=== PATIENT | male | born 1935 | race Caucasian/White ===

== ENCOUNTER → 2018-07-29 12:54 | Outpatient (CLI) | payer MEDICARE, BC, SELFPAY ==
--- NOTE | 2018-07-29 12:59 | US_ITS ---
US kidney retroperitoneal comp HISTORY: ITS.REASON: CKD III ORDERING PHYSICIAN: Jerald Faye PATIENT AGE: 82 years Comparison: None FINDINGS: The right kidney measures 8.9 x 3.9 x 5.6 cm. There is mild renal cortical thinning. No hydronephrosis. No renal mass or perinephric fluid. Left kidney measures 8.8 x 5.3 x 3.9 cm with some mild cortical thinning inferiorly. No hydronephrosis or perinephric fluid collection or renal mass. Unremarkable echogenicity of the kidneys Incidental note made of gallstones. IMPRESSION: 1. No hydronephrosis. 2. Mild cortical thinning. 3. Cholelithiasis
== END ==
PROVIDERS: PCP Family Medicine; Visit Provider Internal Medicine Nephrology
DX: N18.3 Chronic kidney disease, stage 3 (moderate) (principal)
CPT/HCPCS: 76770

== ENCOUNTER → 2019-06-23 15:31 | Outpatient (CLI) | payer MEDICARE, BC, SELFPAY ==
--- NOTE | 2019-06-23 15:39 | XR_ITS ---
PROCEDURE: XR CHEST 2V CLINICAL HISTORY: COUGH Cough COMPARISON: No exams were available for comparison FINDINGS: Prior CABG with clipping of left atrial appendage. Prior aortic valve replacement. There is elevated left hemidiaphragm with atelectatic change in the left lung base and minimal blunting of the left CP angle. Right lung is clear There are degenerative changes of the thoracic spine IMPRESSION: Postsurgical changes with elevated left hemidiaphragm with left basilar atelectasis and trace left effusion Dictated by: Francisco Jaramillo MD 06/23/2019 16:00 Electronically signed by Francisco Jaramillo MD in [place] 06/23/2019 16:00
== END ==
PROVIDERS: PCP Family Medicine; Visit Provider Family Medicine
DX: R05 Cough (principal)
CPT/HCPCS: 71046

== ENCOUNTER → 2020-01-21 07:43 | Outpatient (CLI) | payer MEDICARE, BC, SELFPAY ==
--- NOTE | 2020-01-21 | CA_ITS ---
APPROVED REPORT Civil Engineering Drafter: Cathy Painting RVT Study Quality: Good Indications: CKD,PRIOR HX HTN,HX KIDNEY STONES Risk Factors Hypertension Diabetes Renal Artery Doppler Origin (R) 59.8/ cm/sec Proximal (R) 62.3/ cm/sec Mid (R) 113.1/ cm/sec Distal (R) 59.3/ cm/sec Renal Aorta Ratio (R) 1.00 Segmental A. (R) 44.8/6.7 cm/sec RI: 0.85 Segmental A. Sup (R) 28.0/7.8 cm/sec Segmental A. Mid (R) 44.8/6.7 cm/sec Segmental A. Inf (R) 24.6/7.8 cm/sec Origin (L) 133.4/ cm/sec Proximal (L) 99.7/ cm/sec Mid (L) 113.4/ cm/sec Distal (L) 48.9/ cm/sec Renal Aorta Ratio (L) 1.18 Segmental A. (L) 37.2/9.8 cm/sec RI: 0.73 Segmental A. Sup (L) 27.4/7.8 cm/sec Segmental A. Mid (L) 32.3/12.7 cm/sec Segmental A. Inf (L) 37.2/9.8 cm/sec Renal Measurements Kidney Size (R) 8.2x4.9 cm Cortical Thickness (R) 0.9 cm Kidney Size (L) 10.0x5.6 cm Cortical Thickness (L) 1.2 cm Conclusion Study suggests no evidence of renal artery stenosis in the bilateral renal arteries. 1.2 cm cyst mid pole left kidney. Electronically signed by : Francisco Jaramillo MD 01/21/2020 17:46:56
--- NOTE | 2020-01-21 08:43 | US_ITS ---
PROCEDURE: US KIDNEY CLINICAL INDICATION: CHRONIC KIDNEY DISEASE COMPARISON: RETROPCM US kidney retroperitoneal comp from 07/29/2018 [place] RENAL ARTERY DUPLEX from 01/21/2020 FINDINGS: The right kidney is [id number]. No hydronephrosis, cortical thinning, or renal mass or perinephric fluid collection is evident. There is cortical thinning of the right kidney The left kidney is [id number]. No hydronephrosis, cortical thinning, or renal mass or perinephric fluid collection is evident. There is a small left renal cyst along the lower pole measuring 7 mm. Incidental note made cholelithiasis IMPRESSION: 1. No hydronephrosis. 2. Right renal cortical thinning. 3. Cholelithiasis Dictated by: Francisco Jaramillo MD 01/21/2020 11:26 Electronically signed by Francisco Jaramillo MD in [place] 01/21/2020 11:26
== END ==
PROVIDERS: PCP Family Medicine; Visit Provider Family Medicine
DX: N18.9 Chronic kidney disease, unspecified (principal)
CPT/HCPCS: 76770; 93976

== ENCOUNTER 2020-11-06 15:33 | Observation (INO) | payer MEDICARE, BC, SELFPAY ==
[2020-11-06] VITALS (10 sets, daily range): BP systolic 131–159; BP diastolic 56–96; PULSE 64–90; RESP 16–26; TEMP 36.7–36.9; O2SAT 93–97; BMI 24.3; BMI 26.3
--- NOTE | 2020-11-06 15:36 | ECG_ITS ---
APPROVED REPORT Exam: Resting ECG HR:78 bpm ECG Measurements Heart Rate 78 AXES WA 190 P 65 QRSd 88 QRS -12 QT 378 T 35 QTc 430 Conclusion Sinus rhythm with marked sinus arrhythmia Otherwise normal ECG Electronically signed by : Akash Payne, 11/07/2020 07:10:39
--- NOTE | 2020-11-06 15:39 | HMH.EDGENADL ---
ED Disposition Clinical Impression: Generalized weakness, SIRS (systemic inflammatory response syndrome) Disposition: Admitted as Observation Condition on Discharge: Fair Referrals: PCP,No [Non-Staff] - - Critical Care Critical Care Time: No Attestation: On 11/06/20, the high probability of a clinically significant, sudden or life threatening deterioration of the following system(s) required my full and direct attention, intervention and personal management. The time I documented below is in addition to time spent performing reported procedures but includes the following listed in this critical care notation. Medical Decision Making - Skyler Inquiry Pt receiving controlled substance: No Vital Signs: 11/06/20 15:33 11/06/20 16:19 11/06/20 16:30 Temperature 98.4 F Temperature Source Oral Pulse Rate [Left Radial] 64 74 81 Respiratory Rate 20 18 Blood Pressure [Right Arm] 147/96 H 159/80 H 140/68 Blood Pressure Mean [Right Arm] 113 106 92 Blood Pressure Source [Right Arm] Automatic Cuff Automatic Cuff Blood Pressure Position [Right Arm] Sitting Sitting 02 Sat by Pulse Oximetry 96 94 L 95 Oxygen Delivery Method Room Air Room Air Room Air 11/06/20 17:00 Temperature Temperature Source Pulse Rate [Left Radial] 82 Respiratory Rate Blood Pressure [Right Arm] 141/82 H Blood Pressure Mean [Right Arm] 101 Blood Pressure Source [Right Arm] Automatic Cuff Blood Pressure Position [Right Arm] Sitting 02 Sat by Pulse Oximetry 96 Oxygen Delivery Method Room Air - Lab Data Lab Results 11/06/20 15:38: Lactate 1.5 11/06/20 15:38: WBC 12.2 H, RBC 4.52 L, Hgb 13.2 L, Hct 40.7 L, MCV 90.0, MCH 29.1, MCHC 32.4, RDW 13.5, Plt Count 209, MPV 8.1, Neut % (Auto) 84.3 H, Lymph % (Auto) 10.5, [place] % (Auto) 3.9, Eos % (Auto) 0.8, Baso % (Auto) 0.5, Neut # (Auto) 10.3 H, Lymph # (Auto) 1.3, [place] # (Auto) 0.5, Eos # (Auto) 0.1, Baso # (Auto) 0.1 11/06/20 15:38: Sodium 138, Potassium 4.5, Chloride 103, Carbon Dioxide 31 H, Anion Gap 8.5, BUN 32 H, Creatinine 1.80 H, Estimated Creat Clear 33, Estimated GFR 36 L, Est GFR ( Amer) 44 L, Glucose 260 H, Calcium 9.5 11/06/20 15:38: Total Bilirubin 1.4 H, Direct Bilirubin 0.0, Conjugated Bilirubin 0.0, Indirect Bilirubin 1.4 H, Unconjugated Bilirubin 1.4 H, AST 32, ALT 17, Alkaline Phosphatase 101, Troponin I 0.01, NT-Pro-B Natriuret Pep 1510 H, Total Protein 6.9, Albumin 4.0 11/06/20 16:11: Urine Color Yellow, Urine Appearance Clear, Urine pH 5.5, Ur Specific [place] 1.025, Urine Protein Negative, Urine Glucose (UA) 2+, Urine Ketones Negative, Urine Blood 3+, Urine Nitrate Negative, Urine Bilirubin Negative, Urine Urobilinogen 0.2, Ur Leukocyte Esterase Negative, Urine RBC 20-50, Urine WBC None, Ur Squamous Epith Cells Occasional, Amorphous Sediment Trace, Urine Bacteria None Result diagrams: 11/06/20 15:38 11/06/20 15:38 Orders (Tests/Meds): ORDERS Category Date Time Status CT head/brain wo con Stat Cat Scan 11/06/20 15:59 Taken XR chest portable Stat Exams 11/06/20 15:57 Taken Covid-19 Nasal PCR ([facility]) Routine Lab 11/06/20 16:11 Received Procalcitonin Stat Lab 11/06/20 17:14 Ordered Troponin I Q3H Lab 11/06/20 19:00 Ordered Troponin I Q3H Lab 11/06/20 22:00 Ordered Blood Culture Stat Micro 11/06/20 15:43 Received - Radiology Data #1 Image(s): Chest Image Reviewed: Yes I reviewed the patient's radiology image Elevated left hemidiaphragm, chronic. Left basilar atelectasis. Chronic blunting left costophrenic angle. Prior surgical changes. No acute process. - CT Data CT Scan: Head Time Received: 16:47 ([facility] fax) ED CT Reviewed: Yes: I have viewed the radiologist's interpretation Findings Narrative: No acute intracranial hemorrhage. multiple small hypodensities in the basal ganglia consistent with remote lacunar infarctions. Moderate cerebral atrophy. Chronic white matter ischemic changes. - ECG Data Tracing #1 EKG interpreted
[2020-11-06 15:52] LABS: Basophils # 0.1 K/mm3 (0-0.2); Basophils % 0.5 % (0.1-2.0); Eosinophils # 0.1 K/mm3 (0.0-0.4); Eosinophils % 0.8 % (0.1-12.0); Hematocrit 40.7 % (42.0-52.0); Hemoglobin 13.2 g/dL (14.1-18.0); Lymphocytes # 1.3 K/mm3 (0.7-4.5); Lymphocytes % 10.5 % (10-50); Mean Corpuscular HGB Conc 32.4 g/dL (31.8-35.4); Mean Corpuscular Hemoglobin 29.1 pg (27.0-31.2); Mean Platelet Volume 8.1 fl (7.4-10.4); Monocytes # 0.5 K/mm3 (0.1-1.0); Monocytes % 3.9 % (1.7-9.3); Neutrophils # 10.3 K/mm3 (1.8-7.8); Neutrophils % 84.3 % (37.0-80.0); Platelet Count 209 K/mm3 (142-424); Red Blood Count 4.52 M/mm3 (4.60-6.20); Red Cell Distribution Width 13.5 % (11.5-17.5); White Blood Count 12.2 K/mm3 (4.8-10.8)
[2020-11-06 15:53] LABS: Chloride 103 mmol/L (98-107)
[2020-11-06 15:54] LABS: Potassium 4.5 mmoL/L (3.5-5.1); Sodium 138 mmol/L (136-145)
[2020-11-06 15:56] LABS: Blood Urea Nitrogen 32 mg/dl (9-20); Creatinine Clearance Estimated 33 mL/min (50-200); Estimated Glomerular Filt Rate 36 ml/min (>60); GFR (African American) 44 ML/MIN (>60)
[2020-11-06 15:57] LABS: Anion Gap 8.5 mEq/L (5-15); Calcium 9.5 mg/dl (8.4-10.2); Carbon Dioxide 31 mmol/L (22.0-30.0); Glucose 260 mg/dl (74-100)
--- NOTE | 2020-11-06 15:57 | XR_ITS ---
PROCEDURE: XR CHEST PORTABLE CLINICAL HISTORY: soa COMPARISON: DX XR CHEST 2V from 06/23/2019 FINDINGS: Prior median sternotomy with left atrial appendage clipping. Elevated left hemidiaphragm similar to the previous exam with low lung volumes. Minimal left basilar atelectasis. Right lung is clear. Degenerative change right shoulder. IMPRESSION: As above,. No change with no acute finding Dictated by: Francisco Jaramillo MD 11/07/2020 07:32 Francisco Jaramillo MD in [place] 11/07/2020 07:32
--- NOTE | 2020-11-06 15:59 | CT_ITS ---
PROCEDURE: CT HEAD/BRAIN WO CON CLINICAL INDICATION: difficulty ambulating Altered mental status, altered level of consciousness, confusion, disorientation difficulty walking COMPARISON: No exams were available for comparison TECHNIQUE: Axial images obtained. All CT scans at the facility use one or more dose reduction, viz: automated exposure control, ma/kV adjustment per patient size (including targeted exams where dose is matched to indication, i.e. head), or iterative reconstruction technique. FINDINGS: No midline shift, mass effect, intracranial hemorrhage, hydrocephalus, or extra-axial fluid collection is evident. There are encephalomalacia changes in the cerebellar hemisphere inferiorly. There is generalized atrophy with periventricular hypodensity consistent with ischemic gliotic change from microvascular disease. There are old bilateral lacunar infarctions. The lateral ventricles are prominent and may be due to ex vacuo dilatation from volume loss. The calvarium has an unremarkable appearance. No mastoid effusion. No sinus air-fluid level. IMPRESSION: No acute intracranial finding Chronic ischemic changes with atrophy Dictated by: Francisco Jaramillo MD 11/07/2020 08:30 Francisco Jaramillo MD in [place] 11/07/2020 08:30
[2020-11-06 16:02] LABS: Lactic Acid 1.5 mmol/L (0.7-2.1)
[2020-11-06 16:10] LABS: Alanine Aminotransferase 17 U/L (12-78); Alkaline Phosphatase 101 U/L (38-126); Aspartate Amino Transferase 32 U/L (17-59); Bilirubin,Indirect 1.4 mg/dL (0.0-0.9); Bilirubin,Total 1.4 mg/dl (0.2-1.3); Bilirubin,Unconjugated 1.4 mg/dL (0.0-1.1); Total Protein,Serum 6.9 g/dl (6.3-8.2)
[2020-11-06 16:19] LABS: Microscopic, Urine URINE MICROSCOPIC (MICROSCOPIC)
[2020-11-06 16:21] LABS: NT Pro Brain Natriuretic Pep. 1510 pg/mL (0-450)
[2020-11-06 16:25] LABS: Appearance,Urine CLEAR (Clear); Bilirubin,Urine Negative (Negative); Blood, Urine 3+ (Negative); Color,Urine YELLOW (Yellow); Glucose,Urine (UA) 2+ (Negative); Ketones,Urine Negative (Negative); Leukocyte Esterase,Urine Negative (Negative); Nitrate,Urine Negative (Negative); PH,Urine 5.5 (5.0-8.5); Protein,Urine Negative (Negative); Specific Gravity, Urine 1.025 (1.005-1.030); Urobilinogen,Urine 0.2 EU/dl (0.2)
--- NOTE | 2020-11-06 16:25 | PC.NURSE ---
Pt to rad.
[2020-11-06 16:26] LABS: Troponin I 0.01 ng/ml (0.00-0.034)
[2020-11-06 16:30] LABS: Amorphous Sediment,Urine Trace /lpf; RBC,Urine 20-50 #/hpf (0-3); Squamous Epithelial Cell,Urine Occasional #/hpf (0-5)
--- NOTE | 2020-11-06 16:36 | PC.NURSE ---
pt returning from rad.
--- NOTE | 2020-11-06 17:03 | PC.NURSE ---
MD Clemente at bedside discussing care.
--- NOTE | 2020-11-06 17:20 | PC.NURSE ---
MAHSA GRADES 9 THROUGH 12 TEACHER HERNANDEZ CATHETER. IT WAS DETERMINED THERE WAS NO MEDICAL REASON TO HAVE HERNANDEZ IN PLACE.
--- NOTE | 2020-11-06 17:23 | PC.NURSE ---
Patient attempting to get out of bed, patient repositioned for comfort, significant other at bedside. Bed rails up x 2, call light within reach.
[2020-11-06 18:04] LABS: Procalcitonin 0.071 ng/mL (0.0-2.0)
--- NOTE | 2020-11-06 18:10 | PC.NURSE ---
This RN talked to lab at this time, they report covid swab will be 75 more minutes. Patient holding in ED until covid swab resulted.
[2020-11-06 19:04] LABS: Troponin I 0.02 ng/ml (0.00-0.034)
[2020-11-06 19:43] LABS: POC Glucose,Bedside 255 (70-110)
--- NOTE | 2020-11-06 20:10 | PC.NURSE ---
patient up to floor via stretcher.
[2020-11-06 20:47] LABS: POC Glucose,Bedside 166 (70-110)
[2020-11-06 22:27] LABS: Troponin I 0.02 ng/ml (0.00-0.034)
[2020-11-07] VITALS (7 sets, daily range): BP systolic 122–170; BP diastolic 46–75; PULSE 54–75; RESP 15–19; TEMP 36.4–36.9; O2SAT 95–97; BMI 26.2
--- NOTE | 2020-11-07 03:57 | PC.NURSE ---
Pt oriented to self and birthday and has slept well through the night. pt c/o pain in legs, tylenol administered per mar with desired effects. Lungs are CTA, on room air, sats in mid 90s. IV patent, NS @ 75. Pt has +1 pitting edema in ankles. TEDS on. Pt has not has any UOP through the night. Bowel sounds x4, abd soft and nontender. VSS, call light in reach, no concerns at this time.
[2020-11-07 06:01] LABS: POC Glucose,Bedside 140 (70-110)
[2020-11-07 06:41] LABS: Basophils # 0.1 K/mm3 (0-0.2); Basophils % 0.7 % (0.1-2.0); Eosinophils # 0.3 K/mm3 (0.0-0.4); Eosinophils % 3.7 % (0.1-12.0); Hematocrit 38.3 % (42.0-52.0); Hemoglobin 12.3 g/dL (14.1-18.0); Lymphocytes # 1.8 K/mm3 (0.7-4.5); Lymphocytes % 25.1 % (10-50); Mean Corpuscular Hemoglobin 29.7 pg (27.0-31.2); Mean Corpuscular Volume 92.8 fl (80-94); Mean Platelet Volume 8.5 fl (7.4-10.4); Monocytes # 0.4 K/mm3 (0.1-1.0); Monocytes % 4.9 % (1.7-9.3); Neutrophils # 4.6 K/mm3 (1.8-7.8); Neutrophils % 65.5 % (37.0-80.0); Platelet Count 158 K/mm3 (142-424); Red Blood Count 4.13 M/mm3 (4.60-6.20); Red Cell Distribution Width 13.6 % (11.5-17.5); White Blood Count 7.1 K/mm3 (4.8-10.8)
[2020-11-07 06:45] LABS: Chloride 106 mmol/L (98-107); Sodium 140 mmol/L (136-145)
[2020-11-07 06:46] LABS: Potassium 4.3 mmoL/L (3.5-5.1)
[2020-11-07 06:48] LABS: Blood Urea Nitrogen 29 mg/dl (9-20); Creatinine Clearance Estimated 31 mL/min (50-200); Estimated Glomerular Filt Rate 36 ml/min (>60); GFR (African American) 44 ML/MIN (>60)
[2020-11-07 06:49] LABS: Anion Gap 7.3 mEq/L (5-15); Calcium 8.9 mg/dl (8.4-10.2); Carbon Dioxide 31 mmol/L (22.0-30.0)
[2020-11-07 06:59] LABS: Glucose 122 mg/dl (74-100); Hemoglobin A1C 8.8 % (4.0-6.0)
--- NOTE | 2020-11-07 07:55 | HMH.HP ---
*Admission Date: 11/06/20 *Chief complaint: Weakness *History of present illness: 84-year-old male brought to the ER by family yesterday due to rapidly increasing weakness over the preceding 48 hours. Patient had received his second Covid vaccine the day prior to presentation. Patient did not have any symptoms of illness other than weakness. Patient had apparently become so weak he was unable to ambulate on his own. Patient has underlying dementia as well as chronic kidney disease. After an evaluation in the emergency department which discovered an elevated white blood cell count patient was admitted for further observation. He is remained fever free. This morning patient's dementia prevents discovering any significant information. Patient is oriented to self. He does not realize he is in the hospital. Patient denies any symptoms of disease. [facility] History I have reviewed the patient's past medical history: Yes Medical History: Reports:: Diabetes Mellitus Type 1, Hyperlipidemia, Hypertension, Myocardial Infarction, Valvular Heart Disease *Have you ever received a pneumonia vaccine?: No *Have you received a flu vaccine this season?: No Other Surgeries: Yes: CABG, Cardiac Catheterization, Open Heart Surgery, Skin Cancer Excision, Other Valve Replacement (aortic) - *Social History Smoking Status: Unknown if ever smoked Alcohol Intake: never *Occupational Status:: retired Household Members: significant other *Travel in the last 8 weeks: None Family Hx:: Unable to obtain Review of Systems - Review of Systems Review of systems:: unable to obtain - *Neurologic Reports weakness Meds Home Medications Medication Instructions Recorded Confirmed Type Aspirin 81 mg PO DAILY 11/06/20 11/06/20 History Atorvastatin Calcium [Lipitor 20mg 20 mg PO HS 11/06/20 11/06/20 History Tab] Insulin Aspart [Novolog] 7 units SQ DAILY 11/06/20 11/06/20 History carvediloL [Carvedilol 6.25mg Tab] 6.25 mg PO BID 11/06/20 11/06/20 History Allergies Allergy/AdvReac Type Severity Reaction Status Date / Time NO KNOWN ALLERGIES - NKA Allergy Unknown Uncoded 08/21/17 15:04 Exam Vital signs and Labs for Last 24 Hours: Temp Pulse Resp BP Pulse Ox 97.9 F 54 L 15 122/55 L 96 11/07/20 07:29 11/07/20 07:29 11/07/20 07:29 11/07/20 07:29 11/07/20 07:29 Laboratory Results - last 24 hr 11/06/20 15:38: Lactate 1.5 11/06/20 15:38: WBC 12.2 H, RBC 4.52 L, Hgb 13.2 L, Hct 40.7 L, MCV 90.0, MCH 29.1, MCHC 32.4, RDW 13.5, Plt Count 209, MPV 8.1, Neut % (Auto) 84.3 H, Lymph % (Auto) 10.5, [place] % (Auto) 3.9, Eos % (Auto) 0.8, Baso % (Auto) 0.5, Neut # (Auto) 10.3 H, Lymph # (Auto) 1.3, [place] # (Auto) 0.5, Eos # (Auto) 0.1, Baso # (Auto) 0.1 11/06/20 15:38: Sodium 138, Potassium 4.5, Chloride 103, Carbon Dioxide 31 H, Anion Gap 8.5, BUN 32 H, Creatinine 1.80 H, Estimated Creat Clear 33, Estimated GFR 36 L, Est GFR ( Amer) 44 L, Glucose 260 H, Calcium 9.5 11/06/20 15:38: Total Bilirubin 1.4 H, Direct Bilirubin 0.0, Conjugated Bilirubin 0.0, Indirect Bilirubin 1.4 H, Unconjugated Bilirubin 1.4 H, AST 32, ALT 17, Alkaline Phosphatase 101, Troponin I 0.01, NT-Pro-B Natriuret Pep 1510 H, Total Protein 6.9, Albumin 4.0 11/06/20 15:38: Procalcitonin 0.071 11/06/20 15:42: POC Glucose 255 H 11/06/20 16:11: Urine Color Yellow, Urine Appearance Clear, Urine pH 5.5, Ur Specific [place] 1.025, Urine Protein Negative, Urine Glucose (UA) 2+, Urine Ketones Negative, Urine Blood 3+, Urine Nitrate Negative, Urine Bilirubin Negative, Urine Urobilinogen 0.2, Ur Leukocyte Esterase Negative, Urine RBC 20-50, Urine WBC None, Ur Squamous Epith Cells Occasional, Amorphous Sediment Trace, Urine Bacteria None 11/06/20 18:40: Troponin I 0.02 11/06/20 20:27: POC Glucose 166 H 11/06/20 21:43: Troponin I 0.02 11/07/20 05:54: POC Glucose 140 H 11/07/20 06:10: WBC 7.1 D, RBC 4.13 L, Hgb 12.3 L, Hct 38.3 L, MCV 92.8, MCH 29.7, MCHC 32.0, RDW 13.6, Plt Count 158, MPV 8.5, Neut
--- NOTE | 2020-11-07 08:21 | P.CONPHA_ITS ---
[facility] Pharmacy VTE Monitoring - Patient Demographics Admission date: 11/07/19 Report Date: 11/07/20 Time: 08:21 Allergies/Adverse Reactions: Patient Allergies No Known Allergies Allergy (Unverified 11/07/20 08:09) Height: 1.68 m Weight: 73.936 kg Patient Problems: Current Active Problems Generalized weakness (Acute) SIRS (systemic inflammatory response syndrome) (Acute) Chronic kidney disease, stage 3b (Acute) Alzheimer's dementia (Acute) - VTE Risk Labs: VTE Related Lab Results Hgb 12.3 g/dL (14.1-18.0) L 11/07/20 06:10 Hct 38.3 % (42.0-52.0) L 11/07/20 06:10 Plt Count 158 K/mm3 (142-424) 11/07/20 06:10 BUN 29 mg/dl (9-20) H 11/07/20 06:10 Creatinine 1.80 mg/dl (0.66-1.25) H 11/07/20 06:10 Estimated Creat Clear 31 mL/min (50-200) 11/07/20 06:10 VTE Risk Level: Low Risk - Prophylaxis VTE Prophylaxis Ordered?: Yes Types of VTE Prophylaxis: TEDS Knee High Location of Applied Device: Bilateral Lower Extremeties
--- NOTE | 2020-11-07 15:05 | PC.NURSE ---
PT IS SITTING UP IN THE CHAIR WITH IN THE ROOM. PT HAS STOOD AT THE SOB X2 WITH ASSISTANCE TO USE THE URINAL. AT 1200 AFTER PT USED THE URINAL HE STARTED TO HAVE A BOWEL MOVEMENT AT THE SOB. PT WAS A MINIMUM ASSIST X2 TO AMBULATE TO THE BATHROOM. PT WAS VERY CAUTIOUS WHILE AMBULATING. ACCORDING TO PT'S HE USES A ROLLING WALKER AT HOME. STATES PT NEEDS ASSISTANCE WITH ADL'S AT HOME. TOTAL BATH AND LINEN CHANGE THIS SHIFT. PT HAS BEEN ABLE TO FEED HIMSELF THIS SHIFT BUT EVERYTHING HAS TO BE OPEN AND TOTALLY SETUP ON TRAY. EATING AND DRINKING WELL. ALERT TO SELF ONLY. PT IS UNAWARE HE IS IN THE HOSPITAL. NSR ON THE MONITOR. LUNG SOUNDS CLEAR T/O. REDNESS NOTED TO THE BUTTOCKS. 2+ PITTING EDEMA NOTED TO BILATERAL ANKLES. SPEECH IS VERY GARBLED. PT HAD NO ISSUES WITH CHEWING OR SWALLOWING THIS SHIFT. WILL CONTINUE TO MONITOR.
[2020-11-07 21:24] LABS: POC Glucose,Bedside 170 (70-110)
[2020-11-08] VITALS: BP 150/73; PULSE 64; PULSE 80; RESP 18; TEMP 36.4; O2SAT 96
--- NOTE | 2020-11-08 00:18 | PC.NURSE ---
patient has needed frequent redirection and education on getting out of bed without assistance. has set bed alarm off multiple times. anti slip socks in place, call light within reach, bed alarm on and activated. 2 tylenol given for restlessness. patient takes at home before bed.
--- NOTE | 2020-11-08 02:05 | PC.NURSE ---
0130 patient continues to be restless and impulsive attempting to get up out of bed. rn and tech ambulated patient with walker in hallway to attempt to calm patient.
[2020-11-08 04:00] VITALS: BP 136/67; PULSE 59; PULSE 63; RESP 18; TEMP 36.3; O2SAT 95
[2020-11-08 05:00] VITALS: BMI 26.6
[2020-11-08 05:33] LABS: POC Glucose,Bedside 105 (70-110)
--- NOTE | 2020-11-08 05:58 | PC.NURSE ---
shift summary patient has been unable to sleep more than an hour tonight. remains oriented to self only, pleasantly confused, follows commands appropriately. has repeatedly attempted to get up out of bed setting off the bedside alarm. breath sounds remain clear, environmental monitoring specialist shows sr. patient ambulated with walker, slightly unsteady on feet.
--- NOTE | 2020-11-08 06:52 | HMH.ACPN2 ---
Internal Medicine - PN: Subj *Date: 11/08/20 *Time: 06:52 Interval history: No acute events. Patient remains confused. Patient ambulated with staff multiple times throughout the night with either 1 or 2 person standby assist. Patient had no difficulty with diet per nursing staff. Exam Vital signs and Labs for Last 24 Hours: Temp Pulse Resp BP Pulse Ox 97.3 F L 63 18 136/67 95 11/08/20 04:00 11/08/20 04:00 11/08/20 04:00 11/08/20 04:00 11/08/20 04:00 Laboratory Results - last 24 hr 11/07/20 06:10: Sodium 140, Potassium 4.3, Chloride 106, Carbon Dioxide 31 H, Anion Gap 7.3, BUN 29 H, Creatinine 1.80 H, Estimated Creat Clear 31, Estimated GFR 36 L, Est GFR ( Amer) 44 L, Glucose 122 H D, Calcium 8.9 11/07/20 06:10: Hemoglobin A1c 8.8 H 11/07/20 20:43: POC Glucose 170 H 11/08/20 05:26: POC Glucose 105 I & O for Last 24 hours: Intake & Output 11/05/20 11/06/20 11/07/20 11/08/20 11:59 11:59 11:59 11:59 Intake Total 907 / 907 480 / 480 Balance 907 / 907 480 / 480 Weight 163 lb 166 lb 2 oz - Constitutional no acute distress - *Routine Respiratory Exam Present: CTA bilaterally - *Routine Cardiovascular Exam Present: RRR - *Routine Extremities Exam Present: edema (2+ lower extremities). Absent: cyanosis, clubbing Assessment and Plan (1) Generalized weakness Status: Acute Category: Medical Code(s): R53.1 - Weakness (2) Chronic kidney disease, stage 3b Status: Acute Category: Medical Code(s): N18.32 - Chronic kidney disease, stage 3b (3) Alzheimer's dementia Status: Acute Category: Medical Code(s): G30.9 - Alzheimer's disease, unspecified; F02.80 - Dementia in other diseases classified elsewhere without behavioral disturbance (4) CAD (coronary artery disease) Status: Acute Category: Medical Code(s): I25.10 - Atherosclerotic heart disease of [place] coronary artery without angina pectoris (5) Diabetes mellitus type 2, controlled Status: Acute Category: Medical Code(s): E11.9 - Type 2 diabetes mellitus without complications (6) Dysphagia Status: Acute Category: Medical Code(s): R13.10 - Dysphagia, unspecified - Assessment and plan all Dx Assessment and Plan for all problems:: Patient will have formal evaluations with PT and speech therapy today. Patient seems to be returning to baseline. He will likely be discharged home later today
[2020-11-08 08:00] VITALS: BP 142/71; PULSE 71; RESP 16; TEMP 36.8; O2SAT 97
--- NOTE | 2020-11-08 10:12 | HMH.PHAINT ---
clarified home medication list using list fro Dr Durham' office
--- NOTE | 2020-11-08 10:56 | HMH.PTEV ---
Physical Therapy Evaluation Rehab PT IP Evaluation Start: 11/07/20 07:54 Freq: ONCE Status: Active Protocol: Document 11/08/20 10:47 VAUGHN (Rec: 11/08/20 10:56 AVUGHN [id number]) Subjective/History History History This is the initial IP PT evaluation for Cristóbal Roque. Pt is an 84 y/o male admitted to [facility] for progressive weakness over the last weekend . Pt is confused but spouse was in room and able to answer for pt. Pt's reports pt was moderately independent at home w/ use of rollator for ambulation and was generally independent with transfers. Pt's reports over the last few dayss pt was fully dependent to lift and transfer and was unable to ambulate. Pt reports her and her received 2nd COVID vaccine and was curious if this may have affected patient. Subjective Subjective Pt reports no c/o pain although pt states his L knee is bone on bone - pt alert to name, and that he was in the hospital Rehab PT IP Eval Objective Appearance Patient Behavior Cooperative,Confused Patient Orientation Place,Name Difficulty following instructions mild Speech Pattern Garbled Ambulation Patient Able to Ambulate Yes Ambulation Observation IP General Gait Pattern Observation Shuffling Step Ambulation Distance (feet) 35 Ambulation Assistive Device Rolling Walker Ambulation Ability Supervision/Stand by,Contact Guard/Hand Hold Balance Ability to Arise Able, uses arms to help Sitting Balance Steady, safe Standing Balance Unsteady Dynamic Sitting Balance Ability Fair Dynamic Standing Balance Ability Fair Transfers Bed Transfer Ability Contact Guard/Hand Hold Chair Transfer Ability Contact Guard/Hand Hold Sit to Stand Bed Transfer Ability Contact Guard/Hand Hold Sit to Stand Chair Transfer Ability Contact Guard/Hand Hold ROM All Extremities PT ROM Status WFL MMT All Extremities PT MMT WFL Rehab PT IP prob,goals,plan Problems Date of Evaluation: 11/08/20
--- NOTE | 2020-11-08 11:11 | HMH.SLDYSPHA ---
Speech & Language Evaluation Speech/Language Dysphagia Evaluation Start: 11/08/20 11:06 Freq: ONCE Status: Active Protocol: Document 11/08/20 11:06 [place] (Rec: 11/08/20 11:11 [place] [id number]) Dysphagia Assess/Goals/Plan Assessment Date of Evaluation: 11/08/20 Evaluation Type Initial Certification Assessment/Problems Dysphagia Does Patient Qualify for Service No Qualify/Failure Comment Patient showed no overt s/s of dysphagia. Diet modifications made Recommendations PHYSICIAN CERTIFICATION: The specified therapy services are required, authorized, and reviewed every 30 days. Diet Recommendations Mechanical Soft Liquid Type Recommendations Normal/Thin SL Swallow Guidelines Standard Aspiration Prec. Dysphagia Swallow Precautions/Strategies Sitting Upright (90 deg) Plan Pt/Guardian verbally ack understanding Yes: , CM, and RN notified of dx/prognosis/goals G -code Required No General Information General Current Food Consistancy Regular,Thin Liquids Dentition Good Dentition Oxygen Status Room Air Facial Symmetry Symmetrical Patient Orientation Person Dysphagia:Food Presentation Evaluation Food Type Pureed,Mechanical Soft,Regular ,Liquid,Pudding Dysphagia Evaluation Summary Mr. Roque was given the following consistencies: thins via straw and open cup, pudding, pureed, mechanical soft, regular. No overt signs or symptoms of dysphagia noted in the evaluation. At this time, diet modifications made to mechanical soft diet with chopped meats with gravy/sauce and thin liquids to aid in mastication. Speech therapy is not warranted at this time. Should problems continue, a MBSS is needed. Stroke Dysphagia Assessment PHYSICIAN CERTIFICATION: I certify the specified therapy services for Cristóbal Roque are required, authorized, and reviewed every 30 days.
[2020-11-08 11:25] VITALS: BP 154/67; PULSE 80; RESP 16; TEMP 36.8; O2SAT 98
[2020-11-08 11:46] LABS: POC Glucose,Bedside 179 (70-110)
[2020-11-08 11:46] LABS: POC Glucose,Bedside 228 (70-110)
[2020-11-08 11:54] LABS: POC Glucose,Bedside 229 (70-110)
[2020-11-08 13:36] VITALS: BMI 26.5
--- NOTE | 2020-11-08 14:44 | SW/DCPLANNER ---
PATIENT IS DISCHARGING HOME TODAY WITH ...SHE CHOSE TO TAKE PATIENT HOME AND HOME HEALTH WAS SET UP WITH [facility] PER PATIENT CHOICE... I HAVE SENT IT WITH PATIENT INFORMATION FOR SERVICES TO START IN THE AM...
--- NOTE | 2020-11-09 07:08 | HMH.DCSUM ---
General - General Admission date:: 11/06/20 Discharge date: 11/08/20 HPI HPI: 84-year-old male brought to the ER by family yesterday due to rapidly increasing weakness over the preceding 48 hours. Patient had received his second Covid vaccine the day prior to presentation. Patient did not have any symptoms of illness other than weakness. Patient had apparently become so weak he was unable to ambulate on his own. Patient has underlying dementia as well as chronic kidney disease. After an evaluation in the emergency department which discovered an elevated white blood cell count patient was admitted for further observation. He is remained fever free. This morning patient's dementia prevents discovering any significant information. Patient is oriented to self. He does not realize he is in the hospital. Patient denies any symptoms of disease. Hospital Course Hospital Course: Patient was admitted for observation. His appetite was good. Some difficulty speaking were noted. Patient did not have any choking episodes as had been reported by . Patient underwent PT and speech therapy evaluations. Speech therapy found no signs of dysphagia. PT recommended continue physical therapy for strengthening and this can be accomplished through home health. Patient's IV fluids were discontinued on the . Patient ambulated with standby assist. Patient did have some difficulty sleeping during hospitalization. reports this is baseline. We will try some quetiapine at home to see if this improves sleep at night. Patient has follow-up appointment scheduled at the end of the month and will keep this appointment. Patient was discharged home on November 08 Objective Vital signs: Temp Pulse Resp BP Pulse Ox 98.2 F 80 16 154/67 H 98 11/08/20 11:25 11/08/20 11:25 11/08/20 11:25 11/08/20 11:25 11/08/20 11:25 no acute distress - *Routine Respiratory Exam Present: CTA bilaterally - *Routine Cardiovascular Exam Present: RRR - *Routine Abdominal Exam Present: soft, normoactive bowel sounds. Absent: tenderness - *Routine Extremities Exam Present: edema Results Labs on day of discharge: Labs from last 24 hours 11/08/20 11/07/20 11/07/20 11:44 17:09 12:38 POC Glucose 229 H 179 H 228 H Preliminary micro results at discharge 11/06/20 15:43 Blood Culture - Preliminary Blood NO GROWTH AFTER 48 HOURS 11/06/20 15:43 Blood Culture - Preliminary Blood NO GROWTH AFTER 48 HOURS DS: Diagnosis - Discharge Diagnosis (1) Generalized weakness Status: Acute (2) Chronic kidney disease, stage 3b Status: Acute (3) Alzheimer's dementia Status: Acute (4) CAD (coronary artery disease) Status: Acute (5) Diabetes mellitus type 2, controlled Status: Acute (6) Dysphagia Status: Acute Discharge Plan - Patient Discharge Instructions ACTIVITY: Continue current activity DIET: continue same diet Patient Instructions: DI for Muscle Weakness, DI for Altered Mental Status - Follow up Plan Follow up with: Akash Durham MD [Primary Care Provider] - 11/15/20 9:45 am Disposition: Home, Self-[facility] Medications: Home Medications Medication Instructions Recorded Confirmed Type Aspirin 81 mg PO DAILY 11/06/20 11/06/20 History Atorvastatin Calcium [Lipitor 20mg 20 mg PO HS 11/06/20 11/06/20 History Tab] Insulin Aspart [Novolog] 7 units SQ DAILY 11/06/20 11/06/20 History carvediloL [Carvedilol 6.25mg Tab] 6.25 mg PO BID 11/06/20 11/06/20 History Insulin Glargine,Hum.rec.anlog 12 units SQ HS 11/07/20 11/07/20 History [Lantus Insulin 100units/mL 10mL vial] Donepezil HCl [Aricept 10mg 10 mg PO HS 11/08/20 11/08/20 History tablet] Quetiapine Fumarate 25 mg PO HS #30 tab 11/08/20 Rx Prescriptions/Medication Reconciliation: New Quetiapine Fumarate 25 mg PO HS #30 tab Continued Atorvastatin Calcium [Lipitor 20mg Ta
== END 2020-11-08 14:51 | disposition home or self-care (01) ==
LOC: ER 17:35 → 2ND 17:51
PROVIDERS: Admitting Provider Emergency Medicine; Emergency Provider Emergency Medicine; PCP Family Medicine; Visit Provider Family Medicine
DX: N18.32 Chronic kidney disease, stage 3b (principal); Z79.4 Long term (current) use of insulin; E11.9 Type 2 diabetes mellitus without complications; I12.9 Hypertensive chronic kidney disease with stage 1 through stage 4 chronic kidney disease, or unspecified chronic kidney disease; E78.5 Hyperlipidemia, unspecified; Z95.1 Presence of aortocoronary bypass graft; G30.9 Alzheimer's disease, unspecified; F02.80 Dementia in other diseases classified elsewhere, unspecified severity, without behavioral disturbance, psychotic disturbance, mood disturbance, and anxiety; I25.10 Atherosclerotic heart disease of native coronary artery without angina pectoris; R13.10 Dysphagia, unspecified; R53.1 Weakness; R06.9 Unspecified abnormalities of breathing; E11.22 Type 2 diabetes mellitus with diabetic chronic kidney disease
CPT/HCPCS: 36415; 70450; 71045; 80048; 80076; 81001; 82962; 83036; 83605; 83880; 84145; 84484; 85025; 87040; 92610; 93005; 97116; 97162; 99284; G0378; U0003

== ENCOUNTER 2021-01-25 13:22 | Observation (INO) | payer MEDICARE, BC, SELFPAY ==
[2021-01-25] VITALS (10 sets, daily range): BP systolic 146–171; BP diastolic 67–101; PULSE 70–93; RESP 18–26; TEMP 36.6–37.3; O2SAT 94–98; BMI 24.3; BMI 20.7
--- NOTE | 2021-01-25 13:16 | ECG_ITS ---
APPROVED REPORT Exam: Resting ECG HR:87 bpm ECG Measurements Heart Rate 87 AXES GA 152 P 68 QRSd 102 QRS -24 QT 398 T 48 QTc 478 Conclusion Normal sinus rhythm with sinus arrhythmia Incomplete right bundle branch block Borderline ECG Electronically signed by : Akash Payne, 01/29/2021 07:34:57
--- NOTE | 2021-01-25 13:26 | XR_ITS ---
PROCEDURE: XR CHEST PORTABLE CLINICAL HISTORY: GEN WEAKNESS COMPARISON: DX XR CHEST 2V from 06/23/2019 CR XR CHEST PORTABLE from 11/06/2020 FINDINGS: There has been a prior CABG and left atrial appendage clipping. Left hemidiaphragm is elevated with mild left basilar atelectasis. Right lung is clear. There are degenerative changes in the shoulders IMPRESSION: No change with no acute finding. Dictated by: Francisco Jaramillo MD 01/25/2021 14:15 Francisco Jaramillo MD in [facility] 01/25/2021 14:15
--- NOTE | 2021-01-25 13:46 | PC.NURSE ---
rad at BS
--- NOTE | 2021-01-25 13:51 | HMH.EDGENADL ---
ED Disposition Clinical Impression: Dehydration Dementia Qualifiers: Dementia type: unspecified type Dementia behavioral disturbance: with behavioral disturbance Qualified Code(s): F03.91 - Unspecified dementia with behavioral disturbance Disposition: Admitted as Observation Condition on Discharge: Fair Referrals: Akash Durham MD [Primary Care Provider] - - Critical Care Critical Care Time: No Attestation: On 01/25/21, the high probability of a clinically significant, sudden or life threatening deterioration of the following system(s) required my full and direct attention, intervention and personal management. The time I documented below is in addition to time spent performing reported procedures but includes the following listed in this critical care notation. Medical Decision Making - Skyler Inquiry Pt receiving controlled substance: No Vital Signs: 01/25/21 13:23 01/25/21 13:30 Temperature 97.8 F Temperature Source Oral Pulse Rate 85 Pulse Rate [Right Radial] 88 Respiratory Rate 18 18 Blood Pressure 154/81 H Blood Pressure [Right Arm] 157/88 H Blood Pressure Mean [Right Arm] 111 Blood Pressure Source Automatic Cuff Blood Pressure Source [Right Arm] Automatic Cuff Blood Pressure Position [Right Arm] Sitting 02 Sat by Pulse Oximetry 96 94 L Oxygen Delivery Method Room Air Room Air - Lab Data Lab Results 01/25/21 13:43: WBC 15.5 H, RBC 4.95, Hgb 14.5, Hct 43.5, MCV 87.9, MCH 29.2, MCHC 33.2, RDW 13.2, Plt Count 244, MPV 8.6, Neut % (Auto) 81.5 H, Lymph % (Auto) 13.0, [place] % (Auto) 4.8, Eos % (Auto) 0.4, Baso % (Auto) 0.2, Neut # (Auto) 12.6 H, Lymph # (Auto) 2.0, [place] # (Auto) 0.7, Eos # (Auto) 0.1, Baso # (Auto) 0.0 01/25/21 13:43: Sodium 145, Potassium 4.2, Chloride 106, Carbon Dioxide 30, Anion Gap 13.2, BUN 36 H, Creatinine 1.80 H, Estimated Creat Clear 32, Estimated GFR 36 L, Est GFR ( Amer) 44 L, Glucose 126 H, Calcium 9.4, Troponin I 0.03 01/25/21 13:53: Urine Color Yellow, Urine Appearance Clear, Urine pH 5.5, Ur Specific [place] >= 1.030, Urine Protein 1+, Urine Glucose (UA) Trace, Urine Ketones Trace, Urine Blood 1+, Urine Nitrate Negative, Urine Bilirubin 1+ A, Urine Urobilinogen 0.2, Ur Leukocyte Esterase Negative, Urine RBC 5-10, Urine WBC 3-5, Ur Squamous Epith Cells Occasional, Urine Bacteria None 01/25/21 14:08: Lactate 1.5 Result diagrams: 01/25/21 13:43 01/25/21 13:43 Orders (Tests/Meds): ORDERS Category Date Time Status Complete Blood Count Auto Diff Stat Lab 01/25/21 13:43 Results Covid-19 Nasal PCR ([facility]) Routine Lab 01/25/21 13:40 Received Troponin I Q3H Lab 01/25/21 16:30 Ordered Troponin I Q3H Lab 01/25/21 19:30 Ordered Blood Culture Stat Micro 01/25/21 14:08 Received - Radiology Data #1 Image(s): Chest Image Reviewed: Yes I have reviewed radiologist's interpretation PROCEDURE: XR CHEST PORTABLE CLINICAL HISTORY: GEN WEAKNESS COMPARISON: DX XR CHEST 2V from 06/23/2019 CR XR CHEST PORTABLE from 11/06/2020 FINDINGS: There has been a prior CABG and left atrial appendage clipping. Left hemidiaphragm is elevated with mild left basilar atelectasis. Right lung is clear. There are degenerative changes in the shoulders IMPRESSION: No change with no acute finding. Dictated by: Francisco Jaramillo MD 01/25/2021 14:15 Francisco Jaramillo MD in [facility] 01/25/2021 14:15 - ECG Data Tracing #1 EKG interpreted by Zac Clemente MD: Rhythm: sinus Rate: 87 [place]: Left Ectopy: none Conduction: Incomplete right bundle branch block ST Segment Changes: none T Wave Changes: none Q Waves: none Poor R wave progression No evidence of acute ischemia or injury - Physician Consults Physician Consulted: Herminio Time: 14:40 Reason -: Admission Comment/Response: Agrees to admit the patient to the hospital. We discussed the patient's clinical information, including history, exam, laboratory and radiology results and ED course. Per
[2021-01-25 13:59] LABS: Microscopic, Urine URINE MICROSCOPIC (MICROSCOPIC)
[2021-01-25 14:00] LABS: Chloride 106 mmol/L (98-107); Potassium 4.2 mmoL/L (3.5-5.1); Sodium 145 mmol/L (136-145)
[2021-01-25 14:03] LABS: Appearance,Urine CLEAR (Clear); Blood, Urine 1+ (Negative); Color,Urine YELLOW (Yellow); Glucose,Urine (UA) TRACE (Negative); Ketones,Urine TRACE (Negative); Leukocyte Esterase,Urine Negative (Negative); Nitrate,Urine Negative (Negative); PH,Urine 5.5 (5.0-8.5); Protein,Urine 1+ (Negative); Specific Gravity, Urine >= 1.030 (1.005-1.030); Urobilinogen,Urine 0.2 EU/dl (0.2)
[2021-01-25 14:03] LABS: Anion Gap 13.2 mEq/L (5-15); Blood Urea Nitrogen 36 mg/dl (9-20); Calcium 9.4 mg/dl (8.4-10.2); Carbon Dioxide 30 mmol/L (22.0-30.0); Creatinine Clearance Estimated 32 mL/min (50-200); Estimated Glomerular Filt Rate 36 ml/min (>60); GFR (African American) 44 ML/MIN (>60); Glucose 126 mg/dl (74-100)
[2021-01-25 14:05] LABS: Bilirubin,Urine 1+ (Negative)
[2021-01-25 14:11] LABS: Squamous Epithelial Cell,Urine Occasional #/hpf (0-5)
[2021-01-25 14:15] LABS: Troponin I 0.03 ng/ml (0.00-0.034)
[2021-01-25 14:30] LABS: Lactic Acid 1.5 mmol/L (0.7-2.1)
[2021-01-25 14:33] LABS: Basophils % 0.2 % (0.1-2.0); Eosinophils # 0.1 K/mm3 (0.0-0.4); Eosinophils % 0.4 % (0.1-12.0); Hematocrit 43.5 % (42.0-52.0); Hemoglobin 14.5 g/dL (14.1-18.0); Mean Corpuscular HGB Conc 33.2 g/dL (31.8-35.4); Mean Corpuscular Hemoglobin 29.2 pg (27.0-31.2); Mean Corpuscular Volume 87.9 fl (80-94); Mean Platelet Volume 8.6 fl (7.4-10.4); Monocytes # 0.7 K/mm3 (0.1-1.0); Monocytes % 4.8 % (1.7-9.3); Neutrophils # 12.6 K/mm3 (1.8-7.8); Neutrophils % 81.5 % (37.0-80.0); Platelet Count 244 K/mm3 (142-424); Red Blood Count 4.95 M/mm3 (4.60-6.20); Red Cell Distribution Width 13.2 % (11.5-17.5); White Blood Count 15.5 K/mm3 (4.8-10.8)
[2021-01-25 14:34] LABS: MANUAL DIFFERENTIAL MANUAL DIFFERENTIAL (MANUAL DIFF)
--- NOTE | 2021-01-25 14:38 | PC.NURSE ---
BLAKE MAZA speaking with Dr. Durham at this time
--- NOTE | 2021-01-25 14:42 | PC.NURSE ---
care management notified of admission
[2021-01-25 15:46] LABS: Lymphocytes % 8 % (10-50); Monocytes % 5 % (2-9); Neutrophils % 87 % (42-76); Total Cells Counted 100
[2021-01-25 15:48] LABS: Platelet Estimate Normal
[2021-01-25 15:54] LABS: Ovalocytes 1+
--- NOTE | 2021-01-25 16:01 | PC.NURSE ---
per lab approx 45 mins left until result of covid swab
--- NOTE | 2021-01-25 17:02 | PC.NURSE ---
report called to mk stephen on second floor at this time
--- NOTE | 2021-01-25 17:02 | PC.NURSE ---
Received report from MK Black RN @ this time. SRNA aware of need for transport to floor.
[2021-01-25 17:20] LABS: Troponin I 0.02 ng/ml (0.00-0.034)
[2021-01-25 17:32] LABS: POC Glucose,Bedside 117 (70-110)
[2021-01-25 20:18] LABS: POC Glucose,Bedside 278 (70-110)
--- NOTE | 2021-01-25 20:26 | PC.NURSE ---
Addendum entered by Janine Leon RN 01/25/21 20:39: Pt's cough noted to be weak, suction @ bedside. Original Note: Pt brought up to floor via stretcher, @ bedside. Is alert to self only. Room air. Lungs coarse throughout. Abdomen soft, non-tender w/ active BS. states he is incontinent of B&B, attends place on pt. Skin intact. Teds in place to BLE. Bed safety in place. Pt is a feeder, ate 50% of tray. Pt did take one sip of thin liquids and had an episode of coughing directly afterwards. Pt trialed on nectar thick liquids, tolerated well w/ no s/s of aspiration. Verified w/ code status, pt is a DNR. This was reviewed, signed and placed on chart.
[2021-01-26 04:00] VITALS: BP 137/74; PULSE 75; RESP 24; TEMP 36.9; O2SAT 96
--- NOTE | 2021-01-26 04:51 | PC.NURSE ---
Pt is alert to self. He has been very fatigued and has slept most of the shift. Lungs CTA, On room air. Pt has been incontinent of bladder, no BM this shift. Skin is intact. Bowel sounds x4, abd soft and nontender. IV patent, NS @ 100. VSS, call light in reach, no concerns at this time.
[2021-01-26 05:27] VITALS: BMI 21.2
[2021-01-26 07:00] LABS: Basophils # 0.1 K/mm3 (0-0.2); Lymphocytes # 2.7 K/mm3 (0.7-4.5)
--- NOTE | 2021-01-26 07:00 | HMH.HP ---
*Admission Date: 01/25/21 *Chief complaint: Behavioral disturbance *History of present illness: 85-year-old male with history of coronary artery disease and dementia presented to the emergency department with his who voiced concerns that she was no longer able to care for him at home. Over the last year patient has had more disturbances in his behavior including becoming aggressive at times. In addition to this he has developed aphasia making communication more difficult. Aggressive behaviors have become more frequent and the no longer felt like she could care for him safely and presented to the ER. Any history was taken from the . Patient was evaluated and appeared mildly dehydrated with concentrated urine and an elevated white blood cell count. Decision was made to admit the patient to aid with long-term care placement. This morning the patient will open his eyes and answer questions with nods of his head but cannot give any verbal answers. [facility] History I have reviewed the patient's past medical history: Yes Medical History: Reports:: Cancer (skin), Coronary Artery Disease, Diabetes Mellitus Type 2, Hyperlipidemia, Hypertension, Myocardial Infarction, Valvular Heart Disease *Have you ever received a pneumonia vaccine?: Yes *Have you received a flu vaccine this season?: Yes Other Surgeries: Yes: CABG, Cardiac Catheterization, Open Heart Surgery, Skin Cancer Excision, Other Valve Replacement (aortic) - *Social History Smoking Status: Unknown if ever smoked Alcohol Intake: never *Occupational Status:: retired Housing: house Household Members: spouse *Travel in the last 8 weeks: None Family Hx:: Unable to obtain Review of Systems - Constitutional Denies anorexia - Eyes Denies blurry vision - ENT Denies abnormal hearing - *Cardiovascular Denies chest pain - *Respiratory Denies change in phlegm color - *Gastrointestinal Denies abdominal pain - *Genitourinary Reports urinary incontinence - *Musculoskeletal Reports decreased muscle mass - Integumentary/Breasts Reports non-healing lesions (Skin cancers of face) - *Neurologic Reports abnormal speech, Reports behavioral changes, Reports confusion - Psychiatric Denies abnormal sleep pattern Meds Home Medications Medication Instructions Recorded Confirmed Type Aspirin 81 mg PO DAILY 11/06/20 01/25/21 History Atorvastatin Calcium [Lipitor 20mg 20 mg PO HS 11/06/20 01/25/21 History Tab] Insulin Aspart [Novolog] 7 units SQ DAILY 11/06/20 01/25/21 History carvediloL [Carvedilol 6.25mg Tab] 6.25 mg PO BID 11/06/20 01/25/21 History Insulin Glargine,Hum.rec.anlog 7 units SQ HS 11/07/20 01/25/21 History [Lantus Insulin 100units/mL 10mL vial] Donepezil HCl [Aricept 10mg 10 mg PO HS 11/08/20 01/25/21 History tablet] Quetiapine Fumarate 25 mg PO HS 01/25/21 01/25/21 History Allergies Allergy/AdvReac Type Severity Reaction Status Date / Time No Known Allergies Allergy Unverified 11/07/20 08:09 Exam Vital signs and Labs for Last 24 Hours: Temp Pulse Resp BP Pulse Ox 98.4 F 75 24 137/74 96 01/26/21 04:00 01/26/21 04:00 01/26/21 04:00 01/26/21 04:00 01/26/21 04:00 Laboratory Results - last 24 hr 01/25/21 13:43: WBC 15.5 H, RBC 4.95, Hgb 14.5, Hct 43.5, MCV 87.9, MCH 29.2, MCHC 33.2, RDW 13.2, Plt Count 244, MPV 8.6, Neut % (Auto) 81.5 H, Lymph % (Auto) 13.0, [place] % (Auto) 4.8, Eos % (Auto) 0.4, Baso % (Auto) 0.2, Neut # (Auto) 12.6 H, Lymph # (Auto) 2.0, [place] # (Auto) 0.7, Eos # (Auto) 0.1, Baso # (Auto) 0.0, Total Counted 100, Neutrophils % (Manual) 87 H, Lymphocytes % (Manual) 8 L, Monocytes % (Manual) 5, Platelet Estimate Normal, Ovalocytes 1+ 01/25/21 13:43: Sodium 145, Potassium 4.2, Chloride 106, Carbon Dioxide 30, Anion Gap 13.2, BUN 36 H, Creatinine 1.80 H, Estimated Creat Clear 32, Estimated GFR 36 L, Est GFR ( Amer) 44 L, Glucose 126 H, Calcium 9.4, Troponin I 0.03 01/25/21 13:53: Urin
[2021-01-26 07:08] LABS: Basophils % 0.4 % (0.1-2.0); Eosinophils # 0.1 K/mm3 (0.0-0.4); Lymphocytes % 19.5 % (10-50); Mean Corpuscular Hemoglobin 28.6 pg (27.0-31.2); Mean Corpuscular Volume 89.3 fl (80-94); Mean Platelet Volume 7.9 fl (7.4-10.4); Monocytes # 0.7 K/mm3 (0.1-1.0); Monocytes % 5.4 % (1.7-9.3); Neutrophils % 73.6 % (37.0-80.0); Platelet Count 218 K/mm3 (142-424); Red Blood Count 4.26 M/mm3 (4.60-6.20); Red Cell Distribution Width 13.3 % (11.5-17.5); White Blood Count 13.6 K/mm3 (4.8-10.8)
[2021-01-26 07:40] VITALS: BP 124/76; PULSE 74; RESP 20; TEMP 36.6; O2SAT 96
[2021-01-26 07:41] LABS: Hemoglobin 12.2 g/dL (14.1-18.0)
--- NOTE | 2021-01-26 08:08 | HMH.PHAVTE ---
[facility] Pharmacy VTE Monitoring - Patient Demographics Admission date: 01/25/21 Report Date: 01/26/21 Time: 08:08 Allergies/Adverse Reactions: Patient Allergies No Known Allergies Allergy (Unverified 11/07/20 08:09) Height: 1.85 m Weight: 72.717 kg Patient Problems: Current Active Problems Chronic kidney disease, stage 3b (Acute) Alzheimer's dementia (Acute) CAD (coronary artery disease) (Acute) Diabetes mellitus type 2, controlled (Acute) Dysphagia (Acute) Dehydration (Acute) Dementia (Acute) Dementia with behavioral disturbance (Acute) - VTE Risk Labs: VTE Related Lab Results Hgb 12.2 g/dL (14.1-18.0) L D 01/26/21 06:35 Hct 38.0 % (42.0-52.0) L 01/26/21 06:35 Plt Count 218 K/mm3 (142-424) 01/26/21 06:35 BUN 36 mg/dl (9-20) H 01/25/21 13:43 Creatinine 1.80 mg/dl (0.66-1.25) H 01/25/21 13:43 Estimated Creat Clear 32 mL/min (50-200) 01/25/21 13:43 Was VTE Risk Assessment Performed: Yes VTE Score: 3 VTE Risk Level: Low Risk Clinical Trial Participant: No - Prophylaxis VTE Prophylaxis Ordered?: Yes Types of VTE Prophylaxis: TEDS Knee High
--- NOTE | 2021-01-26 09:51 | HMH.PHAINT ---
CLARIFIED HOME MEDICATION LIST USING LIST FROM DR DUMAS' OFFICE
--- NOTE | 2021-01-26 10:41 | SW/DCPLANNER ---
Addendum entered by Spring Hassan 01/26/21 12:29: This patient has been accepted to [facility] and is agreeable with plan. Dr Durham has stated that patient can discharge today. Once all discharge information/order is in computer I will fax to Lorrie at [facility]. Lorrie has stated they would need this patient at their facility by 3PM. Original Note: I have spoke with this patients regarding plans once medically stable for discharge. stated that patient resides at home and she can no longer care for patient at home. stated that she is interested in placement: [facility] or [facility]. I have explained to that due to patients insurance/admission status patient would be required to admit to facility under private pay. stated that she understood and was fine with this plan. I will follow up with Bette at [facility] and Lorrie with [facility] and fax patient information. Discharge date is unknown at this time but I will continue to follow up with facilities, patients family and MD.
[2021-01-26 11:36] LABS: POC Glucose,Bedside 185 (70-110)
--- NOTE | 2021-01-26 13:53 | HMH.DCSUM ---
General - General Admission date:: 01/25/21 Discharge date: 01/26/21 HPI HPI: 85-year-old male with history of coronary artery disease and dementia presented to the emergency department with his who voiced concerns that she was no longer able to care for him at home. Over the last year patient has had more disturbances in his behavior including becoming aggressive at times. In addition to this he has developed aphasia making communication more difficult. Aggressive behaviors have become more frequent and the no longer felt like she could care for him safely and presented to the ER. Any history was taken from the . Patient was evaluated and appeared mildly dehydrated with concentrated urine and an elevated white blood cell count. Decision was made to admit the patient to aid with long-term care placement. This morning the patient will open his eyes and answer questions with nods of his head but cannot give any verbal answers. Hospital Course Hospital Course: Patient was admitted. Care management was consulted for placement. Patient was accepted at [facility] and will be transferred to the facility today Objective Vital signs: Temp Pulse Resp BP Pulse Ox 97.9 F 74 20 124/76 96 01/26/21 07:40 01/26/21 07:40 01/26/21 07:40 01/26/21 07:40 01/26/21 07:40 Results Labs on day of discharge: Labs from last 24 hours 01/26/21 01/26/21 01/25/21 11:28 06:35 20:04 WBC 13.6 H RBC 4.26 L Hgb 12.2 L D Hct 38.0 L MCV 89.3 MCH 28.6 MCHC 32.0 RDW 13.3 Plt Count 218 MPV 7.9 Neut % (Auto) 73.6 Lymph % (Auto) 19.5 [place] % (Auto) 5.4 Eos % (Auto) 1.0 Baso % (Auto) 0.4 Neut # (Auto) 10.0 H Lymph # (Auto) 2.7 [place] # (Auto) 0.7 Eos # (Auto) 0.1 Baso # (Auto) 0.1 Total Counted Neutrophils % (Manual) Lymphocytes % (Manual) Monocytes % (Manual) Platelet Estimate Ovalocytes Sodium Potassium Chloride Carbon Dioxide Anion Gap BUN Creatinine Estimated Creat Clear Estimated GFR Est GFR ( Amer) Glucose POC Glucose 185 H 278 H Lactate Calcium Troponin I Urine Color Urine Appearance Urine pH Ur Specific [place] Urine Protein Urine Glucose (UA) Urine Ketones Urine Blood Urine Nitrate Urine Bilirubin Urine Urobilinogen Ur Leukocyte Esterase Urine RBC Urine WBC Ur Squamous Epith Cells Urine Bacteria 01/25/21 01/25/21 01/25/21 17:25 16:45 14:08 WBC RBC Hgb Hct MCV MCH MCHC RDW Plt Count MPV Neut % (Auto) Lymph % (Auto) [place] % (Auto) Eos % (Auto) Baso % (Auto) Neut # (Auto) Lymph # (Auto) [place] # (Auto) Eos # (Auto) Baso # (Auto) Total Counted Neutrophils % (Manual) Lymphocytes % (Manual) Monocytes % (Manual) Platelet Estimate Ovalocytes Sodium Potassium Chloride Carbon Dioxide Anion Gap BUN Creatinine Estimated Creat Clear Estimated GFR Est GFR ( Amer) Glucose POC Glucose 117 H Lactate 1.5 Calcium Troponin I 0.02 Urine Color Urine Appearance Urine pH Ur Specific [place] Urine Protein Urine Glucose (UA) Urine Ketones Urine Blood Urine Nitrate Urine Bilirubin Urine Urobilinogen Ur Leukocyte Esterase Urine RBC Urine WBC Ur Squamous Epith Cells Urine Bacteria 01/25/21 01/25/21 01/25/21 13:53 13:43 13:43 WBC 15.5 H RBC 4.95 Hgb 14.5 Hct 43.5 MCV 87.9 MCH 29.2 MCHC 33.2 RDW 13.2 Plt Count 244 MPV 8.6 Neut % (Auto) 81.5 H Lymph % (Auto) 13.0 [place] % (Auto) 4.8 Eos % (Auto) 0.4 Baso % (Auto) 0.2 Neut # (Auto) 12.6 H Lymph # (Auto) 2.0 [place] # (Auto) 0.7 Eos # (Auto) 0.1 Baso # (Auto) 0.0 Total Counted 100 Neutrophil
--- NOTE | 2021-01-26 14:09 | PC.NURSE ---
ATTEMPTED TO CALL REPORT TO [facility]. PER MARSHA, PT'S NURSE IS IN A ROOM WITH ANOTHER PATIENT AND SHE WILL HAVE TO HAVE HER CALL ME BACK WHEN SHE GETS OUT. WILL ATTEMPT TO CALL BACK IN 15 MIN IF I HAVEN'T RECEIVED A RETURN CALL.
--- NOTE | 2021-01-26 14:31 | PC.NURSE ---
REPORT CALLED TO [facility], AMBULANCE NOTIFIED FOR NEED OF TRANSPORT
== END 2021-01-26 15:15 ==
LOC: ER 14:44 → 2ND 14:51
PROVIDERS: Admitting Provider Family Medicine; Emergency Provider Emergency Medicine; PCP Family Medicine; Visit Provider Family Medicine
DX: E86.0 Dehydration (principal); G30.9 Alzheimer's disease, unspecified; Z79.4 Long term (current) use of insulin; E11.9 Type 2 diabetes mellitus without complications; E78.5 Hyperlipidemia, unspecified; I25.2 Old myocardial infarction; Z85.828 Personal history of other malignant neoplasm of skin; Z95.2 Presence of prosthetic heart valve; R47.01 Aphasia; I25.10 Atherosclerotic heart disease of native coronary artery without angina pectoris; E11.22 Type 2 diabetes mellitus with diabetic chronic kidney disease; F02.81 Dementia in other diseases classified elsewhere, unspecified severity, with behavioral disturbance; I12.9 Hypertensive chronic kidney disease with stage 1 through stage 4 chronic kidney disease, or unspecified chronic kidney disease; N18.30 Chronic kidney disease, stage 3 unspecified
CPT/HCPCS: 36415; 71045; 80048; 81001; 82962; 83605; 84484; 85007; 85025; 87040; 93005; 99284; G0378; U0003

== ENCOUNTER 2021-03-29 19:29 | Inpatient (IN) | payer MEDICARE, BC, SELFPAY ==
[2021-03-29] VITALS (8 sets, daily range): BP systolic 102–135; BP diastolic 47–56; PULSE 52–78; RESP 22; TEMP 36.1; O2SAT 88–97; BMI 27.3
--- NOTE | 2021-03-29 19:36 | HMH.EDGENADL ---
ED Disposition Condition on Discharge: Good - Critical Care Critical Care Time: No <Humberto Meyer - Last Filed: 03/29/21 19:53> <Tiffani Gustafson - Last Filed: 03/29/21 22:31> Clinical Impression: Hypoglycemia Disposition: Still a Patient Referrals: Akash Durham MD [Primary Care Provider] - Attestation: On 03/29/21, the high probability of a clinically significant, sudden or life threatening deterioration of the following system(s) required my full and direct attention, intervention and personal management. The time I documented below is in addition to time spent performing reported procedures but includes the following listed in this critical care notation. Medical Decision Making - Medical Records Medical records reviewed: Yes: I reviewed the patient's medical records. - Skyler Inquiry Pt receiving controlled substance: No <Humberto Meyer - Last Filed: 03/29/21 19:53> - Lab Data Result diagrams: 03/29/21 20:20 03/29/21 20:20 <Tiffani Gustafson - Last Filed: 03/29/21 22:31> Vital Signs: 03/29/21 19:36 03/29/21 20:30 Temperature 97.0 F L Temperature Source Axillary Pulse Rate 53 L Pulse Rate [Right] 52 L Respiratory Rate 22 Blood Pressure 102/47 L Blood Pressure [Right Arm] 106/52 L Blood Pressure Mean [Right Arm] 70 Blood Pressure Source Automatic Cuff Blood Pressure Source [Right Arm] Automatic Cuff Blood Pressure Position [Right Arm] Supine 02 Sat by Pulse Oximetry 88 L 94 L Oxygen Delivery Method Room Air Nasal Cannula Oxygen Flow Rate (LPM) 3 - Lab Data Lab Results 03/29/21 20:20: WBC 15.0 H, RBC 3.69 L, Hgb 10.6 L, Hct 32.9 L, MCV 89.2, MCH 28.7, MCHC 32.2, RDW 14.6, Plt Count 199, MPV 8.9, Neut % (Auto) 87.1 H, Lymph % (Auto) 8.8 L, [place] % (Auto) 3.4, Eos % (Auto) 0.5, Baso % (Auto) 0.2, Neut # (Auto) 13.0 H, Lymph # (Auto) 1.3, [place] # (Auto) 0.5, Eos # (Auto) 0.1, Baso # (Auto) 0.0, Total Counted 100, Neutrophils % (Manual) 81 H, Band Neutrophils % 3.0, Lymphocytes % (Manual) 11, Monocytes % (Manual) 5, Platelet Estimate Normal 03/29/21 20:20: Sodium 146 H, Potassium 3.4 L, Chloride 112 H, Carbon Dioxide 33 H, Anion Gap 4.4 L, BUN 42 H, Creatinine 1.60 H, Estimated Creat Clear 38, Estimated GFR 41 L, Est GFR ( Amer) 50 L, Glucose 88, Calcium 8.7, Total Bilirubin 1.6 H, AST 62 H, ALT 31, Alkaline Phosphatase 90, Total Protein 6.2 L, Albumin 3.3 L, Globulin 2.9, Albumin/Globulin Ratio 1.1 03/29/21 21:05: SARS-CoV-2 (PCR) Not detected, Influenza A Untype (PCR) Not detected, Influenza Type B (PCR) Not detected 03/29/21 21:19: Lactate 1.0 Orders (Tests/Meds): ED MEDICATIONS Generic Name Dose Route Start Last Admin Trade Name Freq PRN Reason Stop Dose Admin Lactated Ringer's 500 mls @ 999 mls/hr 03/29/21 21:15 03/29/21 21:07 Lactated Ringer's 1000 Ml Bag IV 03/29/21 21:45 999 mls/hr .Q31M RITU Administration Vancomycin HCl 1,500 mg/ 250 mls @ 125 mls/hr 03/29/21 21:15 03/29/21 22:07 Sodium Chloride IV 04/12/21 21:14 125 mls/hr Q24H RITU Administration Protocol Piperacillin Sod/Tazobactam 50 mls @ 100 mls/hr 03/29/21 21:15 03/29/21 21:38 Sod 3.375 gm/ Sodium Chloride IV 04/12/21 21:14 100 mls/hr Q8H RITU Administration Protocol ORDERS Category Date Time Status Blood Culture Stat Micro 03/29/21 21:15 Received VBG [Venous Blood Gas] Stat RT 03/29/21 19:49 Ordered Medical Decision Narrative: 85-year-old male who presents with a hypoglycemic event from nursing home facility received D50 in route and presents more arousable with a glucose in the 130s. He will have every 15 minute fingersticks for the first 30 minutes with laboratory work-up and be reevaluated following. Patient is having mild increase in respiratory effort with scattered wheezing and rales throughout the bases concerning for possible aspiration event. (Humberto Meyer) Janay: Took over the care of this patient at shift change. Initial assessm
--- NOTE | 2021-03-29 19:39 | CT_ITS ---
PROCEDURE INFORMATION: Exam: CT Head Without Contrast Exam date and time: 03/29/2021 7:39 PM Age: 85 years old Clinical indication: Altered mental status/memory loss; Confusion or disorientation; Patient HX: AMS TECHNIQUE: Imaging protocol: Computed tomography of the head without contrast. 3D rendering (Not supervised by radiologist): MIP and/or 3D reconstructed images were created by the technologist. Radiation optimization: All CT scans at this facility use at least one of these dose optimization techniques: automated exposure control; mA and/or kV adjustment per patient size (includes targeted exams where dose is matched to clinical indication); or iterative reconstruction. COMPARISON: CT HEAD/BRAIN WO CON 11/06/2020 4:25 PM FINDINGS: Brain: Mild non-specific white matter at hypoattenuation is probably due to the chronic small vessel ischemia in this patient. Cerebral ventricles: Mild ventricular enlargement similar to prior appears to be due to volume loss. 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 Paranasal sinuses: Visualized sinuses are unremarkable. No fluid levels. Mastoid air cells: Visualized mastoid air cells are well aerated. Bones/joints: Unremarkable. No acute fracture. Soft tissues: Unremarkable. IMPRESSION: No acute intracranial pathology
--- NOTE | 2021-03-29 19:39 | XR_ITS ---
PROCEDURE INFORMATION: Exam: XR Chest Exam date and time: 03/29/2021 7:39 PM Age: 85 years old Clinical indication: Cough; Prior surgery; Additional info: Concern for aspiration vs pneumonia TECHNIQUE: Imaging protocol: XR of the chest. Views: 1 view. COMPARISON: CR XR CHEST PORTABLE 01/25/2021 1:37 PM FINDINGS: Lungs: Of moderate left basilar opacity seen. Differential includes effusion, collapse, and or consolidation. Mild right basilar opacity. Pleural spaces: Unremarkable. No pleural effusion. No pneumothorax. Heart/Mediastinum: Unchanged heart mediastinum including postsurgical changes. Bones/joints: Unremarkable. IMPRESSION: Moderate left basilar opacity may represent consolidation, collapse, and/or atelectasis
[2021-03-29 20:40] LABS: Chloride 112 mmol/L (98-107); Potassium 3.4 mmoL/L (3.5-5.1); Sodium 146 mmol/L (136-145)
[2021-03-29 20:43] LABS: Alanine Aminotransferase 31 U/L (12-78); Albumin Level 3.3 g/dl (3.5-5.0); Albumin/Globulin Ratio 1.1 (1.1-1.8); Alkaline Phosphatase 90 U/L (38-126); Anion Gap 4.4 mEq/L (5-15); Aspartate Amino Transferase 62 U/L (17-59); Bilirubin,Total 1.6 mg/dl (0.2-1.3); Blood Urea Nitrogen 42 mg/dl (9-20); Carbon Dioxide 33 mmol/L (22.0-30.0); Creatinine Clearance Estimated 38 mL/min (50-200); Estimated Glomerular Filt Rate 41 ml/min (>60); GFR (African American) 50 ML/MIN (>60); Globulin 2.9 g/dL (1.3-3.2); Total Protein,Serum 6.2 g/dl (6.3-8.2)
[2021-03-29 20:44] LABS: Calcium 8.7 mg/dl (8.4-10.2); Glucose 88 mg/dl (74-100)
[2021-03-29 20:50] LABS: Basophils % 0.2 % (0.1-2.0); Eosinophils # 0.1 K/mm3 (0.0-0.4); Eosinophils % 0.5 % (0.1-12.0); Hematocrit 32.9 % (42.0-52.0); Hemoglobin 10.6 g/dL (14.1-18.0); Lymphocytes # 1.3 K/mm3 (0.7-4.5); Lymphocytes % 8.8 % (10-50); Mean Corpuscular HGB Conc 32.2 g/dL (31.8-35.4); Mean Corpuscular Hemoglobin 28.7 pg (27.0-31.2); Mean Corpuscular Volume 89.2 fl (80-94); Mean Platelet Volume 8.9 fl (7.4-10.4); Monocytes # 0.5 K/mm3 (0.1-1.0); Monocytes % 3.4 % (1.7-9.3); Neutrophils % 87.1 % (37.0-80.0); Platelet Count 199 K/mm3 (142-424); Red Blood Count 3.69 M/mm3 (4.60-6.20); Red Cell Distribution Width 14.6 % (11.5-17.5)
[2021-03-29 20:52] LABS: MANUAL DIFFERENTIAL MANUAL DIFFERENTIAL (MANUAL DIFF)
[2021-03-29 21:16] LABS: Coronavirus 19, PCR Not Detected (NotDetected); Influenza A, PCR Not Detected (NotDetected); Influenza B, PCR Not Detected (NotDetected)
[2021-03-29 21:31] LABS: Lymphocytes % 11 % (10-50); Monocytes % 5 % (2-9); Neutrophils % 81 % (42-76); Total Cells Counted 100
[2021-03-29 21:32] LABS: Platelet Estimate Normal
--- NOTE | 2021-03-29 21:45 | PC.NURSE ---
spoke with Jw [facility] who states vancomycin 1500mg iv for first dose
--- NOTE | 2021-03-29 22:30 | PC.NURSE ---
PATIENTS NOTIFIED OF PATIENT BEING ADMITTED
--- NOTE | 2021-03-29 22:45 | PC.NURSE ---
pt changed into pt gown. pt had bm, pericare performed
[2021-03-30] VITALS (13 sets, daily range): BP systolic 121–160; BP diastolic 38–77; PULSE 74–79; RESP 18–21; TEMP 36.1–37.2; O2SAT 92–99; BMI 24.3
[2021-03-30 00:02] LABS: VBG Base Excess -0.8 mmol/L (-2.4-2.3); VBG HCO3 26.1 mmol/L (23-30); VBG Oxygen Saturation 66.5 % (50-70); VBG PCO2 57.7 mmol/L (35-51); VBG PH 7.27 mmol/L (7.31-7.41); VBG PO2 37.7 mmol/L (28-40); VBG Total CO2 27.9 mmol/L (23-27)
[2021-03-30 01:47] LABS: POC Glucose,Bedside 92 (70-110)
--- NOTE | 2021-03-30 01:48 | PC.NURSE ---
PT ARRIVED TO FLOOR VIA STRETCHER AT THIS TIME
--- NOTE | 2021-03-30 03:29 | PC.NURSE ---
A&OX1. PT TOLERATING 3LNC. PT HAS BEEN QUITE AGGRESSIVE T/O SHIFT. HAS ATTEMPTED TO GET OUT OF BED. PRESSURE DRESSING PLACED TO BOTTOM, REDNESS PRESENT. WILL MONITOR FSBS. RESTING COMFORTABLY AT THIS TIME, BED SAFETY IN PLACE. VSS WILL CONTINUE TO MONITOR.
[2021-03-30 05:31] LABS: POC Glucose,Bedside 78 (70-110)
--- NOTE | 2021-03-30 07:24 | HMH.PHAVTE ---
[facility] Pharmacy VTE Monitoring - Patient Demographics Admission date: 03/30/21 Report Date: 03/30/21 Time: 07:24 Allergies/Adverse Reactions: Patient Allergies No Known Allergies Allergy (Unverified 11/07/20 08:09) Height: 1.73 m Weight: 72.802 kg Patient Problems: Current Active Problems Hypoglycemia (Acute) - VTE Risk Labs: VTE Related Lab Results Hgb 10.6 g/dL (14.1-18.0) L 03/29/21 20:20 Hct 32.9 % (42.0-52.0) L 03/29/21 20:20 Plt Count 199 K/mm3 (142-424) 03/29/21 20:20 BUN 42 mg/dl (9-20) H 03/29/21 20:20 Creatinine 1.60 mg/dl (0.66-1.25) H 03/29/21 20:20 Estimated Creat Clear 38 mL/min (50-200) 03/29/21 20:20 Clinical Trial Participant: No - Prophylaxis VTE Prophylaxis Ordered?: Yes Types of VTE Prophylaxis: TEDS Knee High Location of Applied Device: Bilateral Lower Extremeties
--- NOTE | 2021-03-30 07:29 | HMH.PHAINT ---
VERIFIED HOME MEDICATIONS USING LIST FROM [facility]
--- NOTE | 2021-03-30 07:40 | HMH.HP ---
*Admission Date: 03/30/21 *Chief complaint: Mental status changes/hypoglycemia *History of present illness: 85-year-old white male with significant dementia, has been a resident of a skilled care facility for the past several weeks, brought to the emergency department because of ongoing hypoglycemia, after treatment this continue to occur, and patient's evaluation revealed that he had lower lobe pneumonia-fci acquired. Given his presentation he met criteria for SIRS, admitted to hospital for broad-spectrum antibiotics, supportive care and IV fluids. This morning the patient is very anxious, nonverbal, withdraws from care, but is easily reassured with tactile stimuli. [facility] History I have reviewed the patient's past medical history: Yes Medical History: Reports:: Cancer (skin), Coronary Artery Disease, Diabetes Mellitus Type 1, Diabetes Mellitus Type 2, Hyperlipidemia, Hypertension, Myocardial Infarction, Valvular Heart Disease *Have you ever received a pneumonia vaccine?: Yes *Have you received a flu vaccine this season?: Yes Other Surgeries: Yes: CABG, Cardiac Catheterization, Open Heart Surgery, Skin Cancer Excision, Other Valve Replacement (aortic) - *Social History Smoking Status: Unknown if ever smoked Alcohol Intake: never *Occupational Status:: retired Housing: house Household Members: spouse *Travel in the last 8 weeks: None Family Hx:: Unable to obtain Review of Systems - Review of Systems Review of systems:: unable to obtain Meds Home Medications Medication Instructions Recorded Confirmed Type Aspirin 81 mg PO DAILY 11/06/20 03/30/21 History Atorvastatin Calcium [Lipitor 20mg 20 mg PO HS 11/06/20 03/30/21 History Tab] Insulin Aspart [Novolog] 7 units SQ QPMWM 11/06/20 03/30/21 History carvediloL [Carvedilol 6.25mg Tab] 6.25 mg PO BID 11/06/20 03/30/21 History Insulin Glargine,Hum.rec.anlog 12 units SQ HS 11/07/20 03/30/21 History [Lantus Insulin 100units/mL 10mL vial] Donepezil HCl [Aricept 10mg 10 mg PO HS 11/08/20 03/30/21 History tablet] Quetiapine Fumarate 100 mg PO HS 01/25/21 03/30/21 History Acetaminophen [Tylenol 500mg 1,000 mg PO Q6HP PRN 03/30/21 03/30/21 History tablet] Glucagon,Human Recombinant 1 mg IJ NEEDED PRN 03/30/21 03/30/21 History [Glucagon Emergency Kit] Haloperidol Lactate [Haldol 5mg/mL 5 mg IM Q4HP PRN 03/30/21 03/30/21 History vial] Allergies Allergy/AdvReac Type Severity Reaction Status Date / Time No Known Allergies Allergy Unverified 11/07/20 08:09 Exam Vital signs and Labs for Last 24 Hours: Temp Pulse Resp BP Pulse Ox 98.2 F 79 18 154/73 H 95 03/30/21 04:00 03/30/21 04:00 03/30/21 04:00 03/30/21 04:00 03/30/21 04:00 Laboratory Results - last 24 hr 03/29/21 20:20: WBC 15.0 H, RBC 3.69 L, Hgb 10.6 L, Hct 32.9 L, MCV 89.2, MCH 28.7, MCHC 32.2, RDW 14.6, Plt Count 199, MPV 8.9, Neut % (Auto) 87.1 H, Lymph % (Auto) 8.8 L, [place] % (Auto) 3.4, Eos % (Auto) 0.5, Baso % (Auto) 0.2, Neut # (Auto) 13.0 H, Lymph # (Auto) 1.3, [place] # (Auto) 0.5, Eos # (Auto) 0.1, Baso # (Auto) 0.0, Total Counted 100, Neutrophils % (Manual) 81 H, Band Neutrophils % 3.0, Lymphocytes % (Manual) 11, Monocytes % (Manual) 5, Platelet Estimate Normal 03/29/21 20:20: Sodium 146 H, Potassium 3.4 L, Chloride 112 H, Carbon Dioxide 33 H, Anion Gap 4.4 L, BUN 42 H, Creatinine 1.60 H, Estimated Creat Clear 38, Estimated GFR 41 L, Est GFR ( Amer) 50 L, Glucose 88, Calcium 8.7, Total Bilirubin 1.6 H, AST 62 H, ALT 31, Alkaline Phosphatase 90, Total Protein 6.2 L, Albumin 3.3 L, Globulin 2.9, Albumin/Globulin Ratio 1.1 03/29/21 21:05: SARS-CoV-2 (PCR) Not detected, Influenza A Untype (PCR) Not detected, Influenza Type B (PCR) Not detected 03/29/21 21:19: Lactate 1.0 03/30/21 00:01: VBG pH 7.27 L, VBG pCO2 57.7 H, VBG pO2 37.7, VBG HCO3 26.1, VBG Total CO2 27.9 H, VBG O2 Saturation 66.5, VBG Base Excess -0.8 03/30/21 01:29: POC Glucose 92 03/30/21 04:22:
--- NOTE | 2021-03-30 09:25 | HMH.PHACONS ---
- Pharmacy Consult Date: 03/30/21 Time: 09:25 Referring provider: DR. SALCEDO Reason for Consult:: VANCOMYCIN DOSING Allergies and ADEs:: Allergies Allergy/AdvReac Type Severity Reaction Status Date / Time No Known Allergies Allergy Unverified 11/07/20 08:09 Home Medications:: Home Medications Medication Instructions Recorded Confirmed Type Aspirin 81 mg PO DAILY 11/06/20 03/30/21 History Atorvastatin Calcium [Lipitor 20mg 20 mg PO HS 11/06/20 03/30/21 History Tab] Insulin Aspart [Novolog] 7 units SQ QPMWM 11/06/20 03/30/21 History carvediloL [Carvedilol 6.25mg Tab] 6.25 mg PO BID 11/06/20 03/30/21 History Insulin Glargine,Hum.rec.anlog 12 units SQ HS 11/07/20 03/30/21 History [Lantus Insulin 100units/mL 10mL vial] Donepezil HCl [Aricept 10mg 10 mg PO HS 11/08/20 03/30/21 History tablet] Quetiapine Fumarate 100 mg PO HS 01/25/21 03/30/21 History Acetaminophen [Tylenol 500mg 1,000 mg PO Q6HP PRN 03/30/21 03/30/21 History tablet] Glucagon,Human Recombinant 1 mg IJ NEEDED PRN 03/30/21 03/30/21 History [Glucagon Emergency Kit] Haloperidol Lactate [Haldol 5mg/mL 5 mg IM Q4HP PRN 03/30/21 03/30/21 History vial] Height: 1.73 m Weight: 72.802 kg Laboratory Results:: Laboratory Results - last 24 hr 03/29/21 20:20: WBC 15.0 H, RBC 3.69 L, Hgb 10.6 L, Hct 32.9 L, MCV 89.2, MCH 28.7, MCHC 32.2, RDW 14.6, Plt Count 199, MPV 8.9, Neut % (Auto) 87.1 H, Lymph % (Auto) 8.8 L, [place] % (Auto) 3.4, Eos % (Auto) 0.5, Baso % (Auto) 0.2, Neut # (Auto) 13.0 H, Lymph # (Auto) 1.3, [place] # (Auto) 0.5, Eos # (Auto) 0.1, Baso # (Auto) 0.0, Total Counted 100, Neutrophils % (Manual) 81 H, Band Neutrophils % 3.0, Lymphocytes % (Manual) 11, Monocytes % (Manual) 5, Platelet Estimate Normal 03/29/21 20:20: Sodium 146 H, Potassium 3.4 L, Chloride 112 H, Carbon Dioxide 33 H, Anion Gap 4.4 L, BUN 42 H, Creatinine 1.60 H, Estimated Creat Clear 38, Estimated GFR 41 L, Est GFR ( Amer) 50 L, Glucose 88, Calcium 8.7, Total Bilirubin 1.6 H, AST 62 H, ALT 31, Alkaline Phosphatase 90, Total Protein 6.2 L, Albumin 3.3 L, Globulin 2.9, Albumin/Globulin Ratio 1.1 03/29/21 21:05: SARS-CoV-2 (PCR) Not detected, Influenza A Untype (PCR) Not detected, Influenza Type B (PCR) Not detected 03/29/21 21:19: Lactate 1.0 03/30/21 00:01: VBG pH 7.27 L, VBG pCO2 57.7 H, VBG pO2 37.7, VBG HCO3 26.1, VBG Total CO2 27.9 H, VBG O2 Saturation 66.5, VBG Base Excess -0.8 03/30/21 01:29: POC Glucose 92 03/30/21 04:22: POC Glucose 78 Medical History: Reports:: Cancer (skin), Coronary Artery Disease, Diabetes Mellitus Type 1, Diabetes Mellitus Type 2, Hyperlipidemia, Hypertension, Myocardial Infarction, Valvular Heart Disease Assessment and Plan (1) Hypoglycemia Status: Acute Category: Medical Code(s): E16.2 - Hypoglycemia, unspecified (2) Alzheimer's dementia Status: Acute Category: Medical Code(s): G30.9 - Alzheimer's disease, unspecified; F02.80 - Dementia in other diseases classified elsewhere without behavioral disturbance (3) CAD (coronary artery disease) Status: Acute Category: Medical Code(s): I25.10 - Atherosclerotic heart disease of [place] coronary artery without angina pectoris (4) Diabetes mellitus type 2, controlled Status: Acute Category: Medical Code(s): E11.9 - Type 2 diabetes mellitus without complications (5) SIRS (systemic inflammatory response syndrome) Status: Acute Category: Medical Code(s): R65.10 - Systemic inflammatory response syndrome (SIRS) of non-infectious origin without acute organ dysfunction - Assessment and plan all Dx Assessment and Plan for all problems:: Age: 85 yo Serum creatinine: 1.6 mg/dL Height: 68.1 Inches Weight (kg): 72.8 Assessment: IBW (kg): 68.63 Dosing wt(kg): 72.8 Estimated Creatinine clearance (ml/min): 32.2 CRCL method: Cockcroft and Gault using ibw(default). Drug selected: Vancomycin Loading dose
[2021-03-30 11:58] LABS: POC Glucose,Bedside 78 (70-110)
--- NOTE | 2021-03-30 15:25 | HMH.SLDYSPHA ---
Speech & Language Evaluation Speech/Language Dysphagia Evaluation Start: 03/30/21 15:17 Freq: ONCE Status: Active Protocol: Document 03/30/21 15:17 [place] (Rec: 03/30/21 15:25 [place] [id number]) Dysphagia Assess/Goals/Plan Assessment Date of Evaluation: 03/30/21 Evaluation Type Initial Certification Assessment/Problems Dysphagia Does Patient Qualify for Service No Qualify/Failure Comment Patient placed on least restrictive diet. Coughing was noted with thin liquids. No overt s/s of dysphagia on diet from SNF which is mechanical soft with ground meats with gravy/sauce and nectar thick liquids. Recommendations PHYSICIAN CERTIFICATION: The specified therapy services are required, authorized, and reviewed every 30 days. Diet Recommendations Mechanical Soft Liquid Type Recommendations [place] Consistency SL Swallow Guidelines Assist w/all meals,Standard Aspiration Prec. Crush Meds Small pills w/applesauce,Crush lge pills w/applesa Dysphagia Swallow Precautions/Strategies Sitting Upright (90 deg),Small Bites and Sips,Alternate Liquids/Solids Plan Pt/Guardian verbally ack understanding Yes: RN notified of dx/prognosis/goals G -code Required No Speech & Language HPI Language Primary Language Vincentian General Information General Current Food Consistancy Dysphagia Mechanical Soft, Chopped Meats,Thin Liquids Dentition Good Dentition Oxygen Status Nasal Cannula Facial Symmetry Symmetrical Patient Orientation Person Ability to Follow Directions Fair Communication Ability Moderate Impairment Dysphagia:Food Presentation Evaluation Food Type Pureed,Mechanical Soft,Liquid, Pudding Normal/Thin Liquid Response Coughing after swallow,Clears throat Dysphagia Evaluation Summary Mr. Roque was given the following consistencies: thins via straw and open cup, nectar, pudding, pureed, and mechanical soft. The following signs of dysphagia were noted : coughing with thin liquids and throat clearing after thin liquid trials. At this time, it is
[2021-03-30 16:37] LABS: POC Glucose,Bedside 108 (70-110)
--- NOTE | 2021-03-30 17:09 | DIET.NUTRFU ---
Nutritional assessment, IP/consult completed. Pt is at high risk inadequate energy intake rt dementia, has lost 5% BW past 4m and has PA. Pt with dysphagia, SENIOR [employer]INCIPAL PROCESS ENGINEER saw him and recommended soft mech diet with nectar thickened liquids. Admit for hypoglycemia, BG wnl since admission. Will provide soft mech/regular diet with sugar free beverages/desserts and BID glucerna. Will monitor intakes/BG/tolerance to alter nutritional care plan as indicated.
--- NOTE | 2021-03-30 18:32 | PC.NURSE ---
Pt has been non verbal this shift. Pt is confused and has dementia. VSS. Have applied 02 per nc multiple times, pt keeps pulling off. VSS. Sats 88% on RA, continues on 3 L NC. has been here this shift and been updated on status. This RN did receive order for [facility] and pt was seen. Pt continues on a mechanical soft diet/diabetic, with nectar thick liquids. Dsg is cdi intact to coccyx. Have turned q 2 hrs and bathed this am. BS x 2. Did call rt this shift to attempt to deep suction pt and it was not successful, as pt didnt tolerate well. Pt did have a small bm this am. Briefs are worn r/t incontinence. IV abt continues. CB in reach.
--- NOTE | 2021-03-30 18:44 | PC.NURSE ---
Pt currently 92 % on RA, per RT check.
[2021-03-30 23:06] LABS: POC Glucose,Bedside 103 (70-110)
[2021-03-31] VITALS: BP 142/64; PULSE 74; RESP 17; TEMP 36.6; O2SAT 94
[2021-03-31 04:00] VITALS: BP 146/70; PULSE 74; RESP 18; TEMP 37; O2SAT 93
[2021-03-31 05:13] VITALS: BMI 24.2
--- NOTE | 2021-03-31 05:51 | PC.NURSE ---
Patient had an uneventful night; no s/s of acute distress noted at this time. Bed at lowest level for safety, call light within reach; will continue to monitor.
[2021-03-31 06:22] LABS: POC Glucose,Bedside 120 (70-110)
[2021-03-31 07:56] VITALS: BP 182/85; PULSE 68; RESP 20; TEMP 36.9; O2SAT 97
[2021-03-31 08:00] VITALS: PULSE 68; RESP 20; O2SAT 97
--- NOTE | 2021-03-31 08:02 | HMH.ACPN2 ---
Internal Medicine - PN: Subj *Date: 03/31/21 *Time: 08:02 Interval history: Patient remains significantly unresponsive although appears somewhat more alert this morning. Is unable to feed himself. Vital signs have normalized Exam Vital signs and Labs for Last 24 Hours: Temp Pulse Resp BP Pulse Ox 98.6 F 74 18 146/70 H 93 L 03/31/21 04:00 03/31/21 04:00 03/31/21 04:00 03/31/21 04:00 03/31/21 04:00 Laboratory Results - last 24 hr 03/30/21 11:51: POC Glucose 78 03/30/21 15:59: POC Glucose 108 03/30/21 19:58: POC Glucose 103 03/31/21 04:57: POC Glucose 120 H I & O for Last 24 hours: Intake & Output 03/28/21 03/29/21 03/30/21 03/31/21 11:59 11:59 11:59 11:59 Intake Total 1350 / 1350 125 / 125 Balance 1350 / 1350 125 / 125 Weight 160 lb 8 oz 159 lb 11.2 oz Microbiology Reports for the Last 24 Hours: Microbiology 03/30/21 14:10 Sputum - Endotracheal Tube Aspirate Gram Stain - Final Narrative: Rhonchi in the anterior lung spring but symmetric air entry. Abdomen soft. Heart rate regular. Patient remains extremely averse to physical contact and appears very anxious. Assessment and Plan (1) Hypoglycemia Status: Acute Category: Medical Code(s): E16.2 - Hypoglycemia, unspecified (2) Alzheimer's dementia Status: Acute Category: Medical Code(s): G30.9 - Alzheimer's disease, unspecified; F02.80 - Dementia in other diseases classified elsewhere without behavioral disturbance (3) CAD (coronary artery disease) Status: Acute Category: Medical Code(s): I25.10 - Atherosclerotic heart disease of [place] coronary artery without angina pectoris (4) Diabetes mellitus type 2, controlled Status: Acute Category: Medical Code(s): E11.9 - Type 2 diabetes mellitus without complications (5) SIRS (systemic inflammatory response syndrome) Status: Acute Category: Medical Code(s): R65.10 - Systemic inflammatory response syndrome (SIRS) of non-infectious origin without acute organ dysfunction - Assessment and plan all Dx Assessment and Plan for all problems:: Patient responding fairly well to antibiotics. The endpoint with his care is somewhat nebulous given his severe Alzheimer's dementia and his significant inability to perform self-care activities and his extremely diminished quality of life. Continue antibiotics, we will pursue with family whether they have other entertain the idea of hospice consult and palliative care.
--- NOTE | 2021-03-31 09:52 | CARE MANAGER ---
Patient is private pay at [facility]. Spoke with Kevin Roque, patient's , regarding patient's status and declining condition. Discussed Hospice care and returning to the half-way with Hospice to aide in care. is agreeable. Will contact [facility] and arrange to have Hospice see patient once he returns, possibly today. JANET Santana
[2021-03-31 11:00] VITALS: BP 146/78; PULSE 72; RESP 19; TEMP 36.4; O2SAT 95
--- NOTE | 2021-03-31 11:06 | HMH.DCSUM ---
General - General Admission date:: 03/30/21 Discharge date: 03/31/21 HPI HPI: 85-year-old white male with significant dementia, has been a resident of a skilled care facility for the past several weeks, brought to the emergency department because of ongoing hypoglycemia, after treatment this continue to occur, and patient's evaluation revealed that he had lower lobe pneumonia-senior care acquired. Given his presentation he met criteria for SIRS, admitted to hospital for broad-spectrum antibiotics, supportive care and IV fluids. This morning the patient is very anxious, nonverbal, withdraws from care, but is easily reassured with tactile stimuli. Hospital Course Hospital Course: Patient was admitted.... treated with abx and intravenous fluids for sepsis and really did not respond well over the next 24 hours. Given his significant problems with terminal dementia, quality of life issues and very poor prognostic indicators care management discussed with his ongoing end-of-life decisions and she elected to pursue hospice care at the senior care. As a result we will transfer him back to the senior care with palliative care medications, Roxanol, Ativan and Levsin. Follow-up will be per hospice and Dr. Durham at the senior care. Overall prognosis is poor. Objective Vital signs: Temp Pulse Resp BP Pulse Ox 97.6 F 72 19 146/78 H 95 03/31/21 11:00 03/31/21 11:00 03/31/21 11:00 03/31/21 11:00 03/31/21 11:00 moderate distress, chronically ill appearing - *Routine HEENT Exam Head: Present: normocephalic Eye: Present: EOMI, PERRL ENT: Present: mucous membranes dry - *Routine Neck Exam Present: supple - *Routine Respiratory Exam Present: prolonged expiratory phase, rhonchi - *Routine Cardiovascular Exam Present: RRR - *Routine Abdominal Exam Present: soft. Absent: tenderness - *Routine Extremities Exam Present: extremity cold to touch. Absent: cyanosis, clubbing, edema - *Routine Skin Exam Present: warm. Absent: rash - *Routine Neurological Exam Present: altered mental status Patient nearly obtunded. Withdraws to tactile stimuli. - Detailed Eye Exam Eyelids: Bilateral normal inspection Results Labs on day of discharge: Labs from last 24 hours 03/31/21 03/30/21 03/30/21 04:57 19:58 15:59 POC Glucose 120 H 103 108 03/30/21 11:51 POC Glucose 78 DS: Diagnosis - Discharge Diagnosis (1) Hypoglycemia Status: Acute (2) Alzheimer's dementia Status: Chronic (3) CAD (coronary artery disease) Status: Acute (4) Diabetes mellitus type 2, controlled Status: Acute (5) SIRS (systemic inflammatory response syndrome) Status: Acute Discharge Plan - Patient Discharge Instructions ACTIVITY: Bed rest DIET: other (Comfort feeds as tolerated) Patient Instructions: Pneumonia-Adult, Hypoglycemia, DI for Pneumonia -- Adult, DI for Hypoglycemia - Follow up Plan Disposition: Hospice - Medical Facility Condition at discharge:: Deteriorating Home Medications: Home Medications Medication Instructions Recorded Confirmed Type Aspirin 81 mg PO DAILY 11/06/20 03/30/21 History Atorvastatin Calcium [Lipitor 20mg 20 mg PO HS 11/06/20 03/30/21 History Tab] Insulin Aspart [Novolog] 7 units SQ QPMWM 11/06/20 03/30/21 History carvediloL [Carvedilol 6.25mg Tab] 6.25 mg PO BID 11/06/20 03/30/21 History Insulin Glargine,Hum.rec.anlog 12 units SQ HS 11/07/20 03/30/21 History [Lantus Insulin 100units/mL 10mL vial] Donepezil HCl [Aricept 10mg 10 mg PO HS 11/08/20 03/30/21 History tablet] Quetiapine Fumarate 100 mg PO HS 01/25/21 03/30/21 History Acetaminophen [Tylenol 500mg 1,000 mg PO Q6HP PRN 03/30/21 03/30/21 History tablet] Glucagon,Human Recombinant 1 mg IJ NEEDED PRN 03/30/21 03/30/21 History [Glucagon Emergency Kit] Haloperidol Lactate [Haldol 5mg/mL 5 mg IM Q4HP PRN 03/30/21 03/30/21 History vial]
[2021-03-31 11:58] LABS: POC Glucose,Bedside 129 (70-110)
== END 2021-03-31 14:30 | disposition hospice, inpatient (51) | DRG 195 ==
LOC: ER 19:55 → 2ND 03-30 01:38
PROVIDERS: Emergency Medicine; Admitting Provider Family Medicine; Emergency Provider Student in an Organized Health Care Education/Training Program; PCP Family Medicine; Visit Provider Internal Medicine Adolescent Medicine
DX: J18.9 Pneumonia, unspecified organism (principal); E11.649 Type 2 diabetes mellitus with hypoglycemia without coma; I25.10 Atherosclerotic heart disease of native coronary artery without angina pectoris; I10 Essential (primary) hypertension; Z20.822 Contact with and (suspected) exposure to COVID-19; I25.2 Old myocardial infarction; Y95 Nosocomial condition; Z95.2 Presence of prosthetic heart valve; Z51.5 Encounter for palliative care; Z95.1 Presence of aortocoronary bypass graft; Z79.4 Long term (current) use of insulin; G30.9 Alzheimer's disease, unspecified; F02.80 Dementia in other diseases classified elsewhere, unspecified severity, without behavioral disturbance, psychotic disturbance, mood disturbance, and anxiety; Z85.828 Personal history of other malignant neoplasm of skin
CPT/HCPCS: 70450; 71045; 80053; 82803; 82962; 83605; 85007; 85025; 87040; 87070; 87205; 92610; 94760; 96365; 96367; 99284; J2543; J3370; U0003